=== PATIENT | female | born 1990 | race Hispanic/Latino ===

== ENCOUNTER 2022-01-23 08:26 | Emergency (ER) | payer BC ==
--- OUTSIDE RECORDS SUMMARY | 2022-01-23 08:34 | XMS REPORT | Continuity of Care Document ---
:1990 Author Organization [facility] t Address [address] [place] [address] Care Team Providers Name Role Phone MD CARIDAD MARTIN Primary Care Physician .lmuhammad Attending Clinician Unavailable Syed Valadez Attending Clinician Unavailable Syed Valadez Attending Clinician Unavailable LELE JUAREZ Attending Clinician Unavailable SYED VALADEZ Attending Clinician Unavailable YOVANY NGUYEN Attending Clinician Unavailable Syed Valadez Admitting Clinician Unavailable SYED VALADEZ Admitting Clinician Unavailable Payers Payer Name Policy Type Policy Number Effective Date [id number] Problems Condition Condition Condition Status Onset Resolution Last Treating Co mments Source Name Details Category Date Date Treatment Clinician Date Problem Problem [facility] Postoperat Problem Active NOÉ SALCIDO tg pain S Health Endometrio Problem Active NOÉ SALCIDO sis S determined Health by laparoscop y Allergies, Adverse Reactions, Alerts Allergy Allergy Status Severity Reaction(s) Onset Inactive Treating Comm ents Source Name Type Date Date Clinician No Known Drug Active [facility] No Known Drug Active [facility] No Known [facility] Active [facility] No Known Drug Active [facility] Social History Social Habit Start Date Stop Date Quantity Comments Source History of tobacco [facility] use Sex Assigned At [birth year] Female [facility] 00:00:00 00:00:00 Smoking Status Start Date Stop Date Source Unknown [facility] Never smoked tobacco (finding) [facility] Medications Ordered Filled Start Stop Current Ordering Indication Dosage Frequency Signature Comments Components Source Medication Medication Date Date Medication? Clinician (SIG) Name Name Acetaminoph No 1 Every 6 [facility] en/Codeine 7-15 Hours as S Phosphate 14:54: needed for He alth (Tylenol 00 Pain #3) 1 Each TAB Lisinopril No 10mg Daily [facility] (Zestril) S 10 Mg TAB Health Lisinopril No 10mg Daily [facility] (Zestril) S 10 Mg TAB Health No Home 2021- No [facility] Meds 11-13 S 00:00 Health :00 No Home No [facility] Meds 11-13 S 00:00 Health :00 Vital Signs Vital Name Observation Time Observation Value Comments Source Height/Length Measured 2021-05-30 11:32:43 155 cm Weight Dosing 2021-05-30 11:32:43 88 kg Height/Length Measured 2021-05-30 11:29:31 155 cm Weight Dosing 2021-05-30 11:29:31 88 kg Height/Length Measured 2019-10-21 06:24:20 Weight Dosing 2019-10-21 06:24:20 BP Diastolic 2021-11-22 15:09:00 73 mm[Hg] [facility] BP Systolic 2021-11-22 15:09:00 118 mm[Hg] [facility] Heart Rate 2021-11-22 15:09:00 84 /min [facility] Respiratory rate 2021-11-22 15:09:00 16 /min [facility] Body Temperature 2021-11-22 15:09:00 98.2 [degF] [facility] BP Diastolic 2021-11-22 11:09:00 80 mm[Hg] [facility] BP Systolic 2021-11-22 11:09:00 128 mm[Hg] [facility] Heart Rate 2021-11-22 11:09:00 90 /min [facility] Respiratory rate 2021-11-22 11:09:00 18 /min [facility] Body Temperature 2021-11-22 11:09:00 98.7 [degF] [facility] BP Diastolic 2021-11-22 10:53:00 80 mm[Hg] [facility] BP Systolic 2021-11-22 10:53:00 128 mm[Hg] [facility] Heart Rate 2021-11-22 10:53:00 90 /min [facility] Respiratory rate 2021-11-22 10:53:00 18 /min [facility] Body Temperature 2021-11-22 10:53:00 98.7 [degF] [facility] Respiratory rate 2021-11-14 08:00:00 18 /min [facility] Body Temperature 2021-11-14 08:00:00 98.3 [degF] [facility] BP Diastolic 2021-11-14 08:00:00 82 mm[Hg] [facility] BP Systolic 2021-11-14 08:00:00 135 mm[Hg] [facility] Heart Rate 2021-11-14 08:00:00 68 /min [facility] BP Diastolic 2021-11-14 05:10:00 59 mm[Hg] [facility] BP Systolic 2021-11-14 05:10:00 126 mm[Hg] [facility] Heart Rate 2021-11-14 05:10:00 52 /min [facility] Respiratory rate 2021-11-14 05:10:00 18 /min [facility] Body Temperature 2021-11-14 05:10:00 97.6 [degF] [facility] BP Diastolic 2021-11-14 01:10:00 76 mm[Hg] [facility] BP Systolic 2021-11-14 01:10:00 141 mm[Hg] [facility] Heart Rate 2021-11-14 01:10:00 68 /min [facility] Respiratory rate 2021-11-14 01:10:00 18 /min [facility] BP Diastolic 2021-11-13 21:00:00 76 mm[Hg] [facility] BP Systolic 2021-11-13 21:00:00 127 mm[Hg] [facility] Heart Rate 2021-11-13 21:00:00 86 /min [facility] BP Diastolic 2021-11-13 20:00:00 61 mm[Hg] [facility] BP Systolic 2021-11-13 20:00:00 127 mm[Hg] [facility] Heart Rate 2021-11-13 20:00:00 81 /min [facility] BP Diastolic 2021-11-13 17:00:00 79 mm[Hg] [facility] BP Systolic 2021-11-13 17:00:00 132 mm[Hg] [facility] Heart Rate 2021-11-13 17:00:00 84 /min [facility] BP Diastolic 2021-11-13 16:30:00 77 mm[Hg] [facility] BP Systolic 2021-11-13 16:30:00 130 mm[Hg] [facility] Heart Rate 2021-11-13 16:30:00 83 /min [facility] BP Diastolic 2021-11-13 16:00:00 74 mm[Hg] [facility] BP Systolic 2021-11-13 16:00:00 123 mm[Hg] [facility] Heart Rate 2021-11-13 16:00:00 76 /min [facility] BP Diastolic 2021-11-13 15:30:00 67 mm[Hg] [facility] BP Systolic 2021-11-13 15:30:00 126 mm[Hg] [facility] Heart Rate 2021-11-13 15:30:00 80 /min [facility] BP Diastolic 2021-11-13 15:00:00 76 mm[Hg] [facility] BP Systolic 2021-11-13 15:00:00 125 mm[Hg] [facility] Heart Rate 2021-11-13 15:00:00 93 /min [facility] BP Diastolic 2021-11-13 14:45:00 72 mm[Hg] [facility] BP Systolic 2021-11-13 14:45:00 134 mm[Hg] [facility] Heart Rate 2021-11-13 14:45:00 87 /min [facility] BP Diastolic 2021-11-13 14:30:00 73 mm[Hg] [facility] BP Systolic 2021-11-13 14:30:00 126 mm[Hg] [facility] Heart Rate 2021-11-13 14:30:00 84 /min [facility] BP Diastolic 2021-11-13 14:15:00 77 mm[Hg] [facility] BP Systolic 2021-11-13 14:15:00 123 mm[Hg] [facility] Heart Rate 2021-11-13 14:15:00 70 /min [facility] Body Temperature 2021-11-13 14:15:00 98.8 [degF] [facility] BP Diastolic 2021-11-13 13:50:00 82 mm[Hg] [facility] BP Systolic 2021-11-13 13:50:00 131 mm[Hg] [facility] Heart Rate 2021-11-13 13:50:00 73 /min [facility] Respiratory rate 2021-11-13 13:50:00 14 /min [facility] BP Diastolic 2021-11-13 13:37:00 73 mm[Hg] [facility] BP Systolic 2021-11-13 13:37:00 136 mm[Hg] [facility] Heart Rate 2021-11-13 13:37:00 70 /min [facility] Respiratory rate 2021-11-13 13:37:00 14 /min [facility] BP Diastolic 2021-11-13 13:22:00 79 mm[Hg] [facility] BP Systolic 2021-11-13 13:22:00 121 mm[Hg] [facility] Heart Rate 2021-11-13 13:22:00 73 /min [facility] Respiratory rate 2021-11-13 13:22:00 14 /min [facility] BP Diastolic 2021-11-13 13:07:00 74 mm[Hg] [facility] BP Systolic 2021-11-13 13:07:00 127 mm[Hg] [facility] Heart Rate 2021-11-13 13:07:00 74 /min [facility] Respiratory rate 2021-11-13 13:07:00 14 /min [facility] BP Diastolic 2021-11-13 12:52:00 69 mm[Hg] [facility] BP Systolic 2021-11-13 12:52:00 113 mm[Hg] [facility] Heart Rate 2021-11-13 12:52:00 68 /min [facility] Respiratory rate 2021-11-13 12:52:00 14 /min [facility] BP Diastolic 2021-11-13 12:37:00 65 mm[Hg] [facility] BP Systolic 2021-11-13 12:37:00 115 mm[Hg] [facility] Heart Rate 2021-11-13 12:37:00 80 /min [facility] Respiratory rate 2021-11-13 12:37:00 14 /min [facility] Body Temperature 2021-11-13 12:37:00 98.6 [degF] [facility] BP Diastolic 2021-11-13 12:22:00 61 mm[Hg] [facility] BP Systolic 2021-11-13 12:22:00 105 mm[Hg] [facility] Heart Rate 2021-11-13 12:22:00 80 /min [facility] Respiratory rate 2021-11-13 12:22:00 12 /min [facility] Body Temperature 2021-11-13 12:22:00 99.0 [degF] [facility] BP Diastolic 2021-11-13 08:15:00 84 mm[Hg] [facility] BP Systolic 2021-11-13 08:15:00 135 mm[Hg] [facility] Heart Rate 2021-11-13 08:15:00 80 /min [facility] Health Respiratory rate 2021-11-13 08:15:00 18 /min [facility] Body Temperature 2021-11-13 08:15:00 97.8 [degF] [facility] Procedures Procedure Date / Time Performed Performing Clinician Sour e Computed tomography of 2021-11-22 00:00:00 NOÉ [employer] [facility] abdomen and pelvis with contrast Hysterectomy, laparoscopic, 2021-11-13 00:00:00 [facility] robot-assisted ROUTINE VENIPUNCTURE 2021-11-13 00:00:00 [facility] [employer] TLH W/T/O 250 G OR LESS 2021-11-13 00:00:00 [facility] LAPAROSCOPY EXCISE LESIONS 2021-11-13 00:00:00 [employer] COMPREHEN METABOLIC PANEL 2021-11-13 00:00:00 [employer] URINALYSIS AUTO W/O SCOPE 2021-11-13 00:00:00 [employer] CHORIONIC GONADOTROPIN 2021-11-13 00:00[facility]00 [facility] CBC W/AUTO DIFF 2021-11-13 00:00:00 [facility] [place] [facility] WBC COMPLETE CBC AUTOMATED 2021-11-13 00:00:00 [facility] RBC ANTIBODY SCREEN 2021-11-13 00:00:00 [facility] BLOOD TYPING SEROLOGIC ABO 2021-11-13 00:00:00 [facility] BLOOD TYPING SEROLOGIC 2021-11-13 00:00:00 [facility] RH(D) TISSUE EXAM BY PATHOLOGIST 2021-11-13 00:00:00 [facility] Cath w/drainage 2-way latex 2021-11-13 00:00:00 [facility] Hospital observation per hr 2021-11-13 00:00:00 [facility] Acetaminophen injection 2021-11-13 00:00:00 [facility] Succinycholine chloride inj 2021-11-13 00:00:00 [facility] Cefazolin sodium injection 2021-11-13 00:00:00 [facility] Dexamethasone sodium phos 2021-11-13 00:00:00 [facility] Ketorolac tromethamine inj 2021-11-13 00:00:00 [facility] Inj midazolam hydrochloride 2021-11-13 00:00:00 [facility] Morphine sulfate injection 2021-11-13 00:00:00 [facility] Inj nalbuphine 2021-11-13 00:00:00 [facility] hydrochloride Ondansetron hcl injection 2021-11-13 00:00:00 [facility] Inj, propofol, 10 mg 2021-11-13 00:00:00 [facility] Neostigmine methylslfte inj 2021-11-13 00:00:00 [facility] Fentanyl citrate injection 2021-11-13 00:00:00 [facility] Drugs unclassified 2021-11-13 00:00:00 [facility] injection Ringers lactate infusion 2021-11-13 00:00:00 [facility] observation 2021-11-13 00:00:00 [facility] service, per hour Encounter Stat Only 2020-06-15 00:00:00 [facility] Arthrocentesis aspir&/inj 2020-06-15 00:00:00 [facility] major jt/bursa w/o US Minor level new patient 2020-05-07 00:00:00 [facility] office visit X-ray of shoulder, two or 2020-05-07 00:00:00 [facility] more views Encounters Start End Encounter Admission Attending Care Care Encounter Source Date/Time Date/Time Type Type Clinicians Facility Department ID 2021-08-08 Outpatient .lmuhamma [facility] [id number] [facility] 08:58:02 d [id number] Formerly [facility] 2019-09-30 Inpatient Mc Valadezen [facility] [id number] Medical 11:50:00 Syed Valadez [facility] 2021-11-22 2021-11-22 Registered ER RUIZ JUAREZ AE [id number] [facility] 10:48:00 15:11:00 Emergency LELE 67 S Room [facility] 2021-11-13 2021-11-14 Discharged ZULY BONGSHAR RUIZ OB [id number] [facility] 13:02:00 10:36:00 Inpatient SYED 01 S (obs) Health 2020-06-15 2020-06-15 Discharged ZULY NGUYEN RUIZ MELCHOR [id number] [facility] 11:15:00 11:15:00 Recurring YOVANY 54 S Health 2020-05-07 2020-05-07 Discharged ZULY NGUYEN RUIZ MELCHOR [id number] [facility] 16:39:00 16:39:00 Recurring YOVANY 57 S [facility] 2019-10-21 2019-10-21 Outpatient 3 Rory Syed [facility] [id number] Medical 06:03:00 06:03:00 Syed Valadez -[id number] [facility] Results Test Description Test Time Test Comments Results Result Comments Source Urinalysis specimen collection method 2021-11-22 12:30:00 Test Item Value Reference Range Interpretation Comme nts Urine Source (test code = 45549-3) URINE RUIZ HealthColor of Urine by [id number] 12:30:00 Test Item Value Reference Range Interpretation Comments Urine Color (test code = 28905-8) Lt Yellow Yel-Tete * [facility] HealthUrine clarity [id number] 12:30:00 Test Item Value Reference Range Interpretation Comments Urine Appearance (test code = 49906-0) Clear Clear * [facility] HealthUrine pH measurement by automated test [id number] 12:30:00 Test Item Value Reference Range Interpretation Comments Urine pH (test code = 94943-2) 5.5 5.0-8.0 [facility] HealthSpecific gravity of Urine by Automated test [id number] 12:30:00 Test Item Value Reference Range Interpretation Comments Urine Specific [place] (test code = 1.012 1.005-1.030 30558-0) [facility]Urine protein measurement by automated test strip (mass/volume) 2021-11-22 12:30:00 Test Item Value Reference Range Interpretation Comments Urine Protein (test code = 94626-5) Negative Negative * [facility] HealthUrine glucose measurement by automated test strip (mass/volume) 2021-11-22 12:30:00 Test Item Value Reference Range Interpretation Comments Urine Glucose (UA) (test code = Negative Negative * 49285-9) [facility] HealthKetones [Mass/volume] in Urine by Automated test [id number] 12:30:00 Test Item Value Reference Range Interpretation Comments Urine Ketones (test code = 03418-9) Negative Negative * [facility] HealthUrine erythrocytes count by automated test strip (number/volume) 2021-11-22 12:30:00 Test Item Value Reference Range Interpretation Comments Urine Occult Blood (test code = Trace Negative * 51681-2) [facility] HealthUrine nitrite detection by automated test [id number] 12:30:00 Test Item Value Reference Range Interpretation Comments Urine Nitrite (test code = 59454-2) Negative Negative [facility] total bilirubin measurement by automated test strip (mass/volume)2021-11-22 12:30:00 Test Item Value Reference Range Interpretation Comments Urine Bilirubin (test code = Negative Negative 31387-4) [facility] HealthUrine urobilinogen measurement by automated test strip (mass/volume)2021-11-22 12:30:00 Test Item Value Reference Range Interpretation Comments Urine Urobilinogen (test code = Negative 0.0-1.0 97668-2) [facility] HealthUrine leukocytes count by automated test strip (number/volume) 2021-11-22 12:30:00 Test Item Value Reference Range Interpretation Comments Urine Leukocyte Esterase (test code Negative Negative = 44949-5) [facility] HealthUrine sediment erythrocyte count by microscopy (number/high power field)2021-11-22 12:30:00 Test Item Value Reference Range Interpretation Comments Urine RBC (test code = 38487-1) 0-2 0-2 [facility] HealthUrine sediment leukocyte count by microscopy (number/high power field)2021-11-22 12:30:00 Test Item Value Reference Range Interpretation Comments Urine WBC (test code = 5821-4) 0-5 0-5 [facility] HealthUrine sediment epithelial cell count by microscopy (number/high power field)2021-11-22 12:30:00 Test Item Value Reference Range Interpretation Comments Urine Epithelial Cells (test code = None Seen Few 5787-7) [facility] HealthUrine sediment crystal count by microscopy (number/high power field)2021-11-22 12:30:00 Test Item Value Reference Range Interpretation Comments Urine Crystals (test code = None Seen None * 15375-2) [facility] HealthUrine sediment bacteria count by microscopy (number/high power field)2021-11-22 12:30:00 Test Item Value Reference Range Interpretation Comments Urine Bacteria (test code = 5769-5) Few None [facility] HealthUrine sediment casts count by microscopy (number/low power field) 2021-11-22 12:30:00 Test Item Value Reference Range Interpretation Comments Urine Casts (test code = 9842-6) Present None * [facility] HealthUrine sediment hyaline cast count by microscopy (number/low power field)2021-11-22 12:30:00 Test Item Value Reference Range Interpretation Comments Urine Hyaline Casts (test code = 0-1 0-1 5796-8) [facility] HealthYeast detection in urine sediment by light [id number] 12:30:00 Test Item Value Reference Range Interpretation Comments Urine Yeast (test code = 96428-3) None Seen None [facility] comment 12:30:00 Test Item Value Reference Range Interpretation Comments Urinalysis Comment (test * See_Comment [A utomated message] The code = 8262-8) system which generated this result tra nsmitted reference range : *. The reference range was not used to interpr et this result as normal/abnormal . [facility] comment 12:30:00 Test Item Value Reference Range Interpretation Comments Urine Culture Indicated (test code To follow = 8264-4) [facility] HealthAutomated blood leukocyte count (number/volume)2021-11-22 12:25:00 Test Item Value Reference Range Interpretation Comments White Blood Count (test code = 6690-2) 11.7 4.5-11.5 [facility] HealthBlood erythrocytes automated count (number/volume)2021-11-22 12:25:00 Test Item Value Reference Range Interpretation Comments Red Blood Count (test code = 789-8) 4.44 3.8-5.1 [facility] HealthBlood hemoglobin measurement (mass/volume)2021-11-22 12:25:00 Test Item Value Reference Range Interpretation Comments Hemoglobin (test code = 718-7) 12.2 12.0-15.2 [facility] HealthAutomated blood hematocrit (volume fraction)2021-11-22 12:25:00 Test Item Value Reference Range Interpretation Comments Hematocrit (test code = 4544-3) 38.3 34.0-45.5 [facility] HealthAutomated erythrocyte mean corpuscular volume (MCV) measurement 2021-11-22 12:25:00 Test Item Value Reference Range Interpretation Comments Mean Corpuscular Volume (test code = 86 80-94 787-2) [facility] HealthAutomated erythrocyte mean corpuscular hemoglobin (mass per erythrocyte)2021-11-22 12:25:00 Test Item Value Reference Range Interpretation Comments Mean Corpuscular Hemoglobin (test code 27.5 27.0-33.0 = 785-6) [facility] HealthAutomated erythrocyte mean corpuscular hemoglobin concentration measurement (mass/volume)2021-11-22 12:25:00 Test Item Value Reference Range Interpretation Comments Mean Corpuscular Hemoglobin Concent 31.9 33.0-37.0 (test code = 786-4) [facility] HealthAutomated erythrocyte distribution width [id number] 12:25:00 Test Item Value Reference Range Interpretation Comments Red Cell Distribution Width (test code 12.4 10.7-14.5 = 788-0) [facility] HealthAutomated blood platelet count (count/volume)2021-11-22 12:25:00 Test Item Value Reference Range Interpretation Comments Platelet Count (test code = 777-3) 321 150-450 [facility] HealthAutomated blood platelet mean volume [id number] 12:25:00 Test Item Value Reference Range Interpretation Comments Mean Platelet Volume (test code = 9.8 5.7-10.7 50950-9) [facility] HealthAutomated blood neutrophil count as percentage of total [id number] 12:25:00 Test Item Value Reference Range Interpretation Comments Neutrophils (%) (Auto) (test code = 78 47-75 770-8) [facility] HealthAutomated blood immature granulocyte count as percentage of total cjdkbdafsl9150-16-18 12:25:00 Test Item Value Reference Range Interpretation Comments Immature Granulocyte % (Auto) (test 0 0-0 code = 21650-7) [facility] HealthAutomated blood lymphocyte count as percentage of total [id number] 12:25:00 Test Item Value Reference Range Interpretation Comments Lymphocytes (%) (Auto) (test code = 14 25-44 736-9) [facility] HealthAutomated blood monocyte count as percentage of total leukocytes 2021-11-22 12:25:00 Test Item Value Reference Range Interpretation Comments Monocytes (%) (Auto) (test code = 6 3-10 5905-5) [facility] HealthAutomated blood eosinophil count as percentage of total [id number] 12:25:00 Test Item Value Reference Range Interpretation Comments Eosinophils (%) (Auto) (test code = 3 0-7 713-8) [facility] HealthAutomated blood basophil count as percentage of total leukocytes 2021-11-22 12:25:00 Test Item Value Reference Range Interpretation Comments Basophils (%) (Auto) (test code = 0 0-1 706-2) [facility] HealthAutomated blood nucleated erythrocyte count as percentage of total pxlgagxzqz4524-61-25 12:25:00 Test Item Value Reference Range Interpretation Comments Nucleated Red Blood Cells % (test code 0.0 0-0.2 = 15446-1) [facility] HealthAutomated blood neutrophil count (number/volume)2021-11-22 12:25:00 Test Item Value Reference Range Interpretation Comments Neutrophils # (Auto) (test code = 9.1 1.3-6.7 751-8) [facility] HealthAutomated blood immature granulocyte count as percentage of total [id number] 12:25:00 Test Item Value Reference Range Interpretation Comments Immature Granulocyte # (Auto) (test 0.1 0.0-0.0 code = 32975-4) [facility] HealthAutomated blood lymphocyte count (number/volume)2021-11-22 12:25:00 Test Item Value Reference Range Interpretation Comments Lymphocytes # (Auto) (test code = 1.6 1.4-4.1 731-0) [facility] HealthBlood monocytes automated count (number/volume)2021-11-22 12:25:00 Test Item Value Reference Range Interpretation Comments Monocytes # (Auto) (test code = 742-7) 0.7 0-1.3 [facility] HealthAutomated blood eosinophil [id number] 12:25:00 Test Item Value Reference Range Interpretation Comments Eosinophils # (Auto) (test code = 0.3 0-0.8 711-2) [facility] HealthAutomated blood basophil count (number/volume)2021-11-22 12:25:00 Test Item Value Reference Range Interpretation Comments Basophils # (Auto) (test code = 704-7) 0.0 0-0.1 [facility] HealthAutomated blood nucleated erythrocyte count (count/volume) 2021-11-22 12:25:00 Test Item Value Reference Range Interpretation Comments Nucleated Red Blood Cells # (test code 0.00 0-0.01 = 771-6) [facility] comment [id number] 12:25:00 Test Item Value Reference Range Interpretation Comments Manual Differential (test code = Not Ind 8265-1) [id number] 12:25:00 Test Item Value Reference Range Interpretation Comments Sodium Level (test code = 2951-2) 138 136-145 [facility] HealthSerum or plasma potassium measurement (moles/volume)2021-11-22 12:25:00 Test Item Value Reference Range Interpretation Comments Potassium Level (test code = 2823-3) 3.7 3.5-5.1 [facility] HealthSerum or plasma chloride measurement (moles/volume)2021-11-22 12:25:00 Test Item Value Reference Range Interpretation Comments Chloride Level (test code = 2075-0) 102 98-107 [facility] HealthSerum or plasma total carbon dioxide measurement (moles/volume) 2021-11-22 12:25:00 Test Item Value Reference Range Interpretation Comments Carbon Dioxide Level (test code = 27 22-29 2027-) [facility] HealthSerum or plasma anion gap determination (moles/volume)2021-11-22 12:25:00 Test Item Value Reference Range Interpretation Comments Anion Gap (test code = 30311-1) 13 8-18 [facility] HealthSerum or plasma urea nitrogen measurement (mass/volume)2021-11-22 12:25:00 Test Item Value Reference Range Interpretation Comments Blood Urea Nitrogen (test code = 12 7-19 3094-0) [facility] HealthSerum or plasma creatinine measurement (mass/volume)2021-11-22 12:25:00 Test Item Value Reference Range Interpretation Comments Creatinine (test code = 2160-0) 0.7 0.6-1.1 [facility] HealthGFR/BSA.pred SerPl [id number] 12:25:00 Test Item Value Reference Range Interpretation Comments Estimat Glomerular Filtration Rate 104 81-133 (test code = 24003-9) [facility] HealthSerum or plasma glucose measurement (mass/volume)2021-11-22 12:25:00 Test Item Value Reference Range Interpretation Comments Glucose Level (test code = 2345-7) 112 60-100 [facility] HealthSerum or plasma calcium measurement (mass/volume)2021-11-22 12:25:00 Test Item Value Reference Range Interpretation Comments Calcium Level (test code = 01007-0) 9.4 8.4-10.2 [facility] or plasma total bilirubin measurement (mass/volume) 2021-11-22 12:25:00 Test Item Value Reference Range Interpretation Comments Total Bilirubin (test code = 1975-2) 0.4 0.2-1.2 [facility]um or plasma aspartate aminotransferase measurement (enzymatic activity/volume)2021-11-22 12:25:00 Test Item Value Reference Range Interpretation Comments Aspartate Amino Transf (AST/SGOT) (test 15 5-34 code = 1920-8) [facility] or plasma alanine aminotransferase measurement (enzymatic activity/volume)2021-11-22 12:25:00 Test Item Value Reference Range Interpretation Comments Alanine Aminotransferase (ALT/SGPT) 26 0-55 (test code = 1742-6) [facility] or plasma protein measurement (mass/volume)2021-11-22 12:25:00 Test Item Value Reference Range Interpretation Comments Total Protein (test code = 2885-2) 7.6 6.4-8.3 [facility] or plasma albumin measurement (mass/volume)2021-11-22 12:25:00 Test Item Value Reference Range Interpretation Comments Albumin (test code = 1751-7) 4.1 3.5-5.0 [facility] or plasma alkaline phosphatase measurement (enzymatic activity/volume)2021-11-22 12:25:00 Test Item Value Reference Range Interpretation Comments Alkaline Phosphatase (test code = 72 40-150 6768-6) [facility] or plasma lipase measurement (enzymatic activity/volume) 2021-11-22 12:25:00 Test Item Value Reference Range Interpretation Comments Lipase (test code = 3040-3) 19 8-78 [facility] HealthAutomated blood leukocyte count (number/volume)2021-11-14 05:10:00 Test Item Value Reference Range Interpretation Comments White Blood Count (test code = 6690-2) 13.1 4.5-11.5 [facility]Blood erythrocytes automated count (number/volume)2021-11-14 05:10:00 Test Item Value Reference Range Interpretation Comments Red Blood Count (test code = 789-8) 4.40 3.8-5.1 [facility]Blood hemoglobin measurement (mass/volume)2021-11-14 05:10:00 Test Item Value Reference Range Interpretation Comments Hemoglobin (test code = 718-7) 12.2 12.0-15.2 [facility] HealthAutomated blood hematocrit (volume fraction)2021-11-14 05:10:00 Test Item Value Reference Range Interpretation Comments Hematocrit (test code = 4544-3) 39.1 34.0-45.5 [facility]Automated erythrocyte mean corpuscular volume (MCV) measurement 2021-11-14 05:10:00 Test Item Value Reference Range Interpretation Comments Mean Corpuscular Volume (test code = 89 80-94 787-2) [facility]Automated erythrocyte mean corpuscular hemoglobin (mass per erythrocyte)2021-11-14 05:10:00 Test Item Value Reference Range Interpretation Comments Mean Corpuscular Hemoglobin (test code 27.7 27.0-33.0 = 785-6) [facility]Automated erythrocyte mean corpuscular hemoglobin concentration measurement (mass/volume)2021-11-14 05:10:00 Test Item Value Reference Range Interpretation Comments Mean Corpuscular Hemoglobin Concent 31.2 33.0-37.0 (test code = 786-4) [facility]Automated erythrocyte distribution width [id number] 05:10:00 Test Item Value Reference Range Interpretation Comments Red Cell Distribution Width (test code 12.6 10.7-14.5 = 788-0) [facility]Automated blood platelet count (count/volume)2021-11-14 05:10:00 Test Item Value Reference Range Interpretation Comments Platelet Count (test code = 777-3) 360 150-450 [facility]Autom[facility] blood platelet mean volume [id number] 05:10:00 Test Item Value Reference Range Interpretation Comments Mean Platelet Volume (test code = 9.8 5.7-10.7 98767-1) [facility]Automated blood neutrophil count as percentage of total [id number] 05:10:00 Test Item Value Reference Range Interpretation Comments Neutrophils (%) (Auto) (test code = 78 47-75 770-8) [facility]Automated blood immature granulocyte count as percentage of total vfuewimttu7654-28-93 05:10:00 Test Item Value Reference Range Interpretation Comments Immature Granulocyte % (Auto) (test 1 0-0 code = 56910-8) [facility]Automated blood lymphocyte count as percentage of total [id number] 05:10:00 Test Item Value Reference Range Interpretation Comments Lymphocytes (%) (Auto) (test code = 16 25-44 736-9) [facility]ated blood monocyte count as percentage of total leukocytes 2021-11-14 05:10:00 Test Item Value Reference Range Interpretation Comments Monocytes (%) (Auto) (test code = 6 3-10 5905-5) [facility]Automated blood eosinophil count as percentage of total qletgreidp8072-13-72 05:10:00 Test Item Value Reference Range Interpretation Comments Eosinophils (%) (Auto) (test code = 0 0-7 713-8) [facility]ated blood basophil count as percentage of total leukocytes 2021-11-14 05:10:00 Test Item Value Reference Range Interpretation Comments Basophils (%) (Auto) (test code = 0 0-1 706-2) [facility] blood nucleated erythrocyte count as percentage of total ulztgofryp3365-48-88 05:10:00 Test Item Value Reference Range Interpretation Comments Nucleated Red Blood Cells % (test code 0.0 0-0.2 = 64221-9) [facility] blood neutrophil count (number/volume)2021-11-14 05:10:00 Test Item Value Reference Range Interpretation Comments Neutrophils # (Auto) (test code = 10.2 1.3-6.7 751-8) [facility]ated blood immature granulocyte count as percentage of total zifhthngga9909-88-26 05:10:00 Test Item Value Reference Range Interpretation Comments Immature Granulocyte # (Auto) (test 0.1 0.0-0.0 code = 81903-1) [facility]Automated blood lymphocyte count (number/volume)2021-11-14 05:10:00 Test Item Value Reference Range Interpretation Comments Lymphocytes # (Auto) (test code = 2.0 1.4-4.1 731-0) [facility] (number/volume)2021-11-14 05:10:00 Test Item Value Reference Range Interpretation Comments Monocytes # (Auto) (test code = 742-7) 0.7 0-1.3 [facility]Automated blood eosinophil [id number] 05:10:00 Test Item Value Reference Range Interpretation Comments Eosinophils # (Auto) (test code = 0.0 0-0.8 711-2) [facility]ated blood basophil count (number/volume)2021-11-14 05:10:00 Test Item Value Reference Range Interpretation Comments Basophils # (Auto) (test code = 704-7) 0.0 0-0.1 [facility]Automated blood nucleated erythrocyte count (count/volume) 2021-11-14 05:10:00 Test Item Value Reference Range Interpretation Comments Nucleated Red Blood Cells # (test code 0.00 0-0.01 = 771-6) [facility] comment [id number] 05:10:00 Test Item Value Reference Range Interpretation Comments Manual Differential (test code = Not Ind 8265-1) [facility] HealthMicroscopic examination of [id number] 12:05:00 Test Item Value Reference Range Interpretation Comments Microscopic Urinalysis (T) (test code Not Ind = 56249-1) [facility] HealthUrinalysis specimen collection [id number] 12:05:00 Test Item Value Reference Range Interpretation Comments Urine Source (test code = 80790-8) URINE [facility] HealthColor of Urine by [id number] 12:05:00 Test Item Value Reference Range Interpretation Comments Urine Color (test code = 66382-8) Colorless Yel-Tete * [facility] HealthUrine clarity [id number] 12:05:00 Test Item Value Reference Range Interpretation Comments Urine Appearance (test code = 73618-1) Clear Clear * [facility] HealthUrine pH measurement by automated test [id number] 12:05:00 Test Item Value Reference Range Interpretation Comments Urine pH (test code = 27161-8) 6.0 5.0-8.0 [facility] HealthSpecific gravity of Urine by Automated test [id number] 12:05:00 Test Item Value Reference Range Interpretation Comments Urine Specific [place] (test code = 1.005 1.005-1.030 87625-5) [facility] HealthUrine protein measurement by automated test strip (mass/volume) 2021-11-12 12:05:00 Test Item Value Reference Range Interpretation Comments Urine Protein (test code = 65484-1) Negative Negative * [facility] HealthUrine glucose measurement by automated test strip (mass/volume) 2021-11-12 12:05:00 Test Item Value Reference Range Interpretation Comments Urine Glucose (UA) (test code = Negative Negative * 18494-4) [facility] HealthKetones [Mass/volume] in Urine by Automated test [id number] 12:05:00 Test Item Value Reference Range Interpretation Comments Urine Ketones (test code = 21350-3) Negative Negative * [facility] HealthUrine erythrocytes count by automated test strip (number/volume) 2021-11-12 12:05:00 Test Item Value Reference Range Interpretation Comments Urine Occult Blood (test code = Negative Negative * 58482-1) [facility] HealthUrine nitrite detection by automated test [id number] 12:05:00 Test Item Value Reference Range Interpretation Comments Urine Nitrite (test code = 55387-2) Negative Negative [facility] Health[facility] total bilirubin measurement by automated test strip (mass/volume)2021-11-12 12:05:00 Test Item Value Reference Range Interpretation Comments Urine Bilirubin (test code = Negative Negative 13899-0) [facility] HealthUrine urobilinogen measurement by automated test strip (mass/volume)2021-11-12 12:05:00 Test Item Value Reference Range Interpretation Comments Urine Urobilinogen (test code = Negative 0.0-1.0 49756-8) [facility] HealthUrine leukocytes count by automated test strip (number/volume) 2021-11-12 12:05:00 Test Item Value Reference Range Interpretation Comments Urine Leukocyte Esterase (test code Negative Negative = 89881-4) [facility] [id number] 12:05:00 Test Item Value Reference Range Interpretation Comments Microscopic Urinalysis (T) (test code Not Ind = 57671-9) [facility] HealthService comment 12:05:00 Test Item Value Reference Range Interpretation Comments Urinalysis Comment (test * See_Comment [A utomated message] The code = 8262-8) system which generated this result tra nsmitted reference range : *. The reference range was not used to interpr et this result as normal/abnormal . [facility]Serum or plasma beta choriogonadotropin ( test) [id number] 12:00:00 Test Item Value Reference Range Interpretation Comments Serum Test, Qualitative Negative Negative (test code = 2110-5) [facility] HealthSodium FdwTv-[id number] 12:00:00 Test Item Value Reference Range Interpretation Comments Sodium Level (test code = 2951-2) 137 136-145 [facility]Serum or plasma potassium measurement (moles/volume)2021-11-12 12:00:00 Test Item Value Reference Range Interpretation Comments Potassium Level (test code = 2823-3) 4.2 3.5-5.1 [facility] or plasma chloride measurement (moles/volume)2021-11-12 12:00:00 Test Item Value Reference Range Interpretation Comments Chloride Level (test code = 2075-0) 104 98-107 [facility]Serum or plasma total carbon dioxide measurement (moles/volume) 2021-11-12 12:00:00 Test Item Value Reference Range Interpretation Comments Carbon Dioxide Level (test code = -2028-01) [facility] or plasma anion gap determination (moles/volume)2021-11-12 12:00:00 Test Item Value Reference Range Interpretation Comments Anion Gap (test code = 93773-1) 12 8-18 [facility]um or plasma urea nitrogen measurement (mass/volume)2021-11-12 12:00:00 Test Item Value Reference Range Interpretation Comments Blood Urea Nitrogen (test code = 03 17- 3094-0) [facility] or plasma creatinine measurement (mass/volume)2021-11-12 12:00:00 Test Item Value Reference Range Interpretation Comments Creatinine (test code = 2160-0) 0.8 0.6-1.1 [facility] HealthGFR/BSA.pred SerPl [id number] 12:00:00 Test Item Value Reference Range Interpretation Comments Estimat Glomerular Filtration Rate 89 81-133 (test code = 36834-9) [facility]um or plasma glucose measurement (mass/volume)2021-11-12 12:00:00 Test Item Value Reference Range Interpretation Comments Glucose Level (test code = 2345-7) 92 60-100 [facility]Serum or plasma calcium measurement (mass/volume)2021-11-12 12:00:00 Test Item Value Reference Range Interpretation Comments Calcium Level (test code = 98794-8) 9.6 8.4-10.2 [facility] or plasma total bilirubin measurement (mass/volume) 2021-11-12 12:00:00 Test Item Value Reference Range Interpretation Comments Total Bilirubin (test code = 1975-2) 0.3 0.2-1.2 [facility]um or plasma aspartate aminotransferase measurement (enzymatic activity/volume)2021-11-12 12:00:00 Test Item Value Reference Range Interpretation Comments Aspartate Amino Transf (AST/SGOT) (test 22 -34 code = 1920-8) [facility] or plasma alanine aminotransferase measurement (enzymatic activity/volume)2021-11-12 12:00:00 Test Item Value Reference Range Interpretation Comments Alanine Aminotransferase (ALT/SGPT) 25 0-55 (test code = 1742-6) [facility] protein measurement (mass/volume)2021-11-12 12:00:00 Test Item Value Reference Range Interpretation Comments Total Protein (test code = 2885-2) 7.7 6.4-8.3 [facility] albumin measurement (mass/volume)2021-11-12 12:00:00 Test Item Value Reference Range Interpretation Comments Albumin (test code = 1751-7) 4.3 3.5-5.0 [facility] plasma alkaline phosphatase measurement (enzymatic activity/volume)2021-11-12 12:00:00 Test Item Value Reference Range Interpretation Comments Alkaline Phosphatase (test code = 68 40150 6768-6) [facility] beta choriogonadotropin ( test) [id number] 12:00:00 Test Item Value Reference Range Interpretation Comments Serum Test, Qualitative Negative Negative (test code = 2110-5) [facility]
[2022-01-23] MEDS ORDERED: ONDANSETRON 4 MG/2 ML VIAL ONE (08:52)
[2022-01-23] MEDS ORDERED: MORPHINE 2 MG/ML SYR ONE ×2 (08:52→14:19)
[2022-01-23] MEDS ORDERED: NA CHLORIDE 0.9% 1,000 ML ONE (08:53)
[2022-01-23 09:05] LABS: Urine Blood 1+ (Negative); Urine Glucose Negative (Negative); Urine Protein Trace (Negative)
[2022-01-23 09:07] LABS: Absolute Lymphocytes (CBC) 1.3 K/uL (0.7-4.9); Hematocrit 38.3 % (36.0-45.0); Lymphocytes % 7.1 % (15.3-44.8); MCV 83.3 fL (80-100); MPV 7.9 fL (7.6-11.3); RBC Red Blood Cell Count 4.59 M/uL (3.86-4.86)
[2022-01-23 09:28] LABS: Albumin 3.7 g/dL (3.4-5.0); Bilirubin Total 0.5 mg/dL (0.2-1.0); Protein, Total 7.7 g/dL (6.4-8.2)
--- NOTE | 2022-01-23 10:09 | RAD REPORT ---
EXAM DESCRIPTION: CT - Abdomen Pelvis W Contrast - 01/23/2022 9:49 am CLINICAL HISTORY: Abdominal pain COMPARISON: none. TECHNIQUE: Computed axial tomography of the abdomen pelvis was obtained. 100 cc Isovue-300 was admin istered intravenously. Oral contrast was not requested which limits evaluation of bowel and appendix All CT scans are performed using dose optimization technique as appropriate and may include automated exposure control or mA/KV adjustment according to patient size. FINDINGS: Fatty liver The spleen, pancreas and adrenals unremarkable. Horseshoe kidney. No hydronephrosis. Normal appendix There is no evidence of diverticulitis. 2.5 centimeter left ovarian dermoid Air is present within the vagina. There is also a air which is outside of vagina with small amount of fluid and stranding within the fat. IMPRESSION: These findings likely indicate a vaginal dehiscence
[2022-01-23] MEDS ORDERED: MORPHINE 4 MG/ML SYR ONE (10:40)
--- NOTE | 2022-01-23 11:34 | EDPHYS ---
Physician Documentation [facility] Name: Makenzie Mendez Age: 31 yrs Sex: Female : 1990 Arrival Date: 01/23/2022 Time: 08:31 Bed 11 Private MD: ED Physician Brendan Lopez HPI: 01/23 08:54 This 31 yrs old Female presents to ER via Ambulatory with complaints of jl9 Abdominal Pain, patient reports have a hysterectomy November 13, 2021 and having intercourse for the first time last night. Patient noticed minimal spotting after and started having upper and lower abdominal pain. . 08:54 The patient presents with abdominal pain in the epigastric area, right lower quadrant, jl9 in the left lower quadrant. Onset: The symptoms/episode began/occurred last night. The symptoms do not radiate. Associated signs and symptoms: Pertinent negatives: nausea, vomiting, and diarrhea. The symptoms are described as crampy. Modifying factors: The symptoms are alleviated by nothing, the symptoms are aggravated by nothing. Severity of pain: in the emergency department the pain is a 9 / 10. The patient has not experienced similar symptoms in the past. 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 ROS: 08:55 Constitutional: Negative for fever, chills, and weight loss, Eyes: Negative for injury, jl9 pain, redness, and discharge, ENT: Negative for injury, pain, and discharge, Neck: Negative for injury, pain, and swelling, Cardiovascular: Negative for chest pain, palpitations, and edema, Respiratory: Negative for shortness of breath, cough, wheezing, and pleuritic chest pain. 08:55 Back: Negative for injury and pain, MS/Extremity: Negative for injury and deformity. 08:55 Skin: Negative for injury, rash, and discoloration, Neuro: Negative for headache, weakness, numbness, tingling, and seizure, Psych: Negative for depression, anxiety, suicide ideation, homicidal ideation, and hallucinations, Allergy/Immunology: Negative for hives, rash, and allergies, Endocrine: Negative for neck swelling, polydipsia, polyuria, polyphagia, and marked weight changes, Hematologic/Lymphatic: Negative for swollen nodes, abnormal bleeding, and unusual bruising. 08:55 Abdomen/GI: Positive for abdominal cramps. 08:55 : Positive for small amounts, hematuria. Exam: 08:56 Constitutional: This is a well developed, well nourished patient who is awake, alert, jl9 and in no acute distress. Head/Face: Normocephalic, atraumatic. Eyes: Pupils equal round and reactive to light, extra-ocular motions intact. Lids and lashes normal. Conjunctiva and sclera are non-icteric and not injected. Cornea within normal limits. Periorbital areas with no swelling, redness, or edema. ENT: Mucous membranes moist. Neck: Trachea midline, no thyromegaly or masses palpated, and no cervical lymphadenopathy. Supple, full range of motion without nuchal rigidity, or vertebral point tenderness. No Meningismus. Chest/axilla: Normal chest wall appearance and motion. Nontender with no deformity. No lesions are appreciated. Cardiovascular: Regular rate and rhythm with a normal S1 and S2. No gallops, murmurs, or rubs. Normal PMI, no JVD. No pulse deficits. Respiratory: Lungs have equal breath sounds bilaterally, clear to auscultation and percussion. No rales, rhonchi or wheezes noted. No increased work of breathing, no retractions or nasal flaring. 08:56 Back: No spinal tenderness. No costovertebral tenderness. Full range of motion. 08:56 Skin: Warm, dry with normal turgor. Normal color with no rashes, no lesions, and no evidence of cellulitis. MS/ Extremity: Pulses equal, no cyanosis. Neurovascular intact. Full, normal range of motion. Neuro: Awake and alert, GCS 15, oriented to person, place, time, and situation. Cranial nerves II-XII grossly intact. Motor strength 5/5 in all extremities. Sensory grossly intact. Cerebellar exam normal. Normal gait. Psych: Awake, alert, with orientation to person, place and time. Behavior, mood, and affect are within normal limits. 08:56 Abdomen/GI: Inspection: abdomen appears normal, Bowel sounds: normal, Palpation: mild abdominal tenderness, in all quadrants. 08:56 : CVA tenderness, is absent, Pelvic Exam: The exam is refused by the patient/guardian. The risks and consequences are understood by the patient, Gravid exam: Bladder: Rectal exam: 11:39 Abdomen/GI: Inspection: Bowel sounds: Palpation: Rectal exam: Indicators: Liver: jl9 11:39 : Pelvic Exam: Speculum exam: scant bleeding, no tissue in vagina is seen, bimanual exam reveals normal findings. Vital Signs: 08:32 BP 135 / 76; Pulse 114; Resp 17; Temp 98.8(TE); Pulse Ox 100% on R/A; Weight 90.72 kg tw2 (R); Height 5 ft. 1 in. (154.94 cm); Pain 9/10; 09:09 BP 124 / 72; Pulse 101; Resp 14; Pulse Ox 100% on R/A; Pain 6/10; ss 08:32 Body Mass Index 37.79 (90.72 kg, 154.94 cm) tw2 MDM: 08:32 Patient medically screened. jl9 08:57 Data reviewed: vital signs, nurses notes. jl9 10:27 Counseling: I had a detailed discussion with the patient and/or guardian regarding: the jl9 historical points, exam findings, and any diagnostic results supporting the discharge/admit diagnosis, lab results, radiology results, the need for further work-up and treatment in the hospital. 12:08 Physician consultation: was called at 12:08, was contacted at 12:08, regarding after a jl9 discussion of the case, a recommendation for transfer for higher level of care is made, Spoke to [facility] GAS REGULATOR REPAIRER and she accepts patient for transfer and will see in the ED upon arrival. . 01/23 08:38 Order name: CBC with Diff; Complete Time: 09:30 01/23 08:38 Order name: CMP; Complete Time: 09:30 [facility] 01/23 08:38 Order name: Lipase; Complete Time: 09:30 01/23 09:05 Order name: Urine Dipstick-Ancillary; Complete Time: 09:30 [facility] 01/23 09:30 Order name: Lactate; Complete Time: 11:27 01/23 09:30 Order name: Blood Culture Adult (2) [facility] 01/23 08:38 Order name: CT Abd/Pelvis - IV Contrast Only; Complete Time: 10:10 01/23 10:14 Order name: SARS RAPID; Complete Time: 11:46 01/23 08:38 Order name: IV Saline Lock; Complete Time: 08:57 01/23 08:38 Order name: Labs collected and sent; Complete Time: 08:57 01/23 08:38 Order name: Urine Dipstick-Ancillary (obtain specimen); Complete Time: 08:57 01/23 10:26 Order name: Pelvic Exam Setup; Complete Time: 11:32 jl9 Administered Medications: 08:55 Drug: Ondansetron 4 mg Route: IVP; Site: right antecubital; ss 11:44 Follow up: Response: No adverse reaction; Pain is decreased ph 08:57 Drug: NS 0.9% 1000 ml Route: IV; Rate: 1000 ml; Site: right antecubital; ss 08:57 Drug: morphine 2 mg Route: IVP; Infused Over: 4 mins; Site: right antecubital; ss 11:44 Follow up: Response: No adverse reaction; Pain is decreased ph 10:35 Drug: morphine 4 mg Route: IVP; Infused Over: 4 mins; Site: right antecubital; ph 11:44 Follow up: Response: No adverse reaction; Pain is decreased ph 11:30 CANCELLED (wdd): Rocephin (cefTRIAXone) 2 grams IV at calculated rate once; Given slow jl9 IV push per pharmarcy instructions 12:25 Drug: metroNIDAZOLE 500 mg Volume: 100 ml; Route: IVPB; Infused Over: 30 mins; Site: ss right antecubital; 12:55 Follow up: IV Status: Completed infusion 13:00 Drug: Zosyn (piperacillin-tazobactam) 3.375 grams Route: IVPB; Infused Over: 60 mins; ss Site: right antecubital; 14:13 Follow up: IV Status: Completed infusion ss 14:13 Drug: morphine 2 mg Route: IVP; Infused Over: 4 mins; Site: right antecubital; ss Disposition Summary: 01/23/22 11:33 Transfer Ordered Transfer Location: [facility] jl9 Reason: Higher level of care jl9 Condition: Fair jl9 Problem: new jl9 Symptoms: have worsened jl9 Accepting Physician: In process(01/23/22 14:14) ss Diagnosis - Other abdominal pain - Vaginal Dehisence s/p hysterectomy 11/13/21 jl9 Discharge Instructions: - Discharge Summary Sheet tw2 Forms: - Work release form tw2 - Medication Reconciliation Form jl9 - SBAR form jl9 Signatures: Dispatcher [employer] Vanessa Benavides, RN RN ss Tracy Blum RN RN Calista Sarmiento RN RN tw2 Saulo Telles jl9 Corrections: (The following items were deleted from the chart) 10:30 08:54 This 31 yrs old Female presents to ER via Ambulatory with complaints of jl9 Abdominal Pain, patient reports have a hysterectomy a few weeks ago and having intercourse for the first time last night. Patient noticed minimal spotting after and started having upper and lower abdominal pain. . jl9 11:30 11:11 Rocephin (cefTRIAXone) 2 grams IV at calculated rate once; Given slow IV push per jl9 pharmarcy instructions ordered. jl9 14:14 11:33 In process jl9
--- NOTE | 2022-01-23 11:34 | ER ---
Nurse's Notes [facility] Name: Makenzie Mendez Age: 31 yrs Sex: Female : 1990 Arrival Date: 01/23/2022 Time: 08:31 Bed 11 Private MD: Diagnosis: Other abdominal pain-Vaginal Dehisence s/p hysterectomy 11/13/21 Presentation: 01/23 08:32 Chief complaint: Patient states: i am having abdominal pain. i had a hysterectomy done tw2 November 13. i am from [place]. i got cleared by my dr a month ago for all regular activity. but last night after intercourse i am having really bad pain and it has not gone away. i am also bleeding it is bright red but it is not a lot. it is spotting. they took my uterus but not my ovaries. the pain takes my breathe away. Coronavirus screen: At this time, the client does not indicate any symptoms associated with coronavirus-19. Ebola Screen: Patient denies travel to an Ebola-affected area in the 21 days before illness onset. Initial Sepsis Screen: Does the patient meet any 2 criteria? HR > 90 bpm. No. Patient's initial sepsis screen is negative. Does the patient have a suspected source of infection? No. Patient's initial sepsis screen is negative. Risk Assessment: Do you want to hurt yourself or someone else? Patient reports no desire to harm self or others. Onset of symptoms was January 23, 2022. 08:32 Method Of Arrival: Ambulatory tw2 08:32 Acuity: [place] 3 tw2 Triage Assessment: 08:36 General: Appears uncomfortable, Behavior is calm, cooperative, appropriate for age. tw2 Pain: Complains of pain in vagina. Neuro: Level of Consciousness is awake, alert, obeys commands, Oriented to person, place, time, situation. Respiratory: Airway is patent Respiratory effort is even, unlabored, Respiratory pattern is regular, symmetrical. GI: Reports nausea. : Reports pain vaginal bleeding that is bright red, spotty. 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 Screenin:37 Abuse screen: Denies threats or abuse. Nutritional screening: No deficits noted. tw2 Tuberculosis screening: No symptoms or risk factors identified. Fall Risk None identified. Assessment: 08:41 Reassessment: pt taken to restroom via w/c for urine collection at this time. tw2 08:50 General: Appears uncomfortable, Behavior is calm, cooperative, Denies fever, feeling ss ill, fatigue, chills. Pain: Complains of pain in suprapubic area and right upper quadrant Pain currently is 9 out of 10 on a pain scale. Is continuous, Aggravated by increased activity. Neuro: Level of Consciousness is awake, alert, obeys commands, Oriented to person, place, time, situation, Speech is normal, Facial symmetry appears normal, Pupils are PERRLA. Cardiovascular: Capillary refill < 3 seconds is brisk in bilateral fingers. Respiratory: Airway is patent Respiratory effort is even, unlabored, Respiratory pattern is regular, symmetrical. GI: Bowel sounds present X 4 quads. Abdomen is tender to palpation in right upper quadrant. : Reports vaginal spotting. EENT: Oral mucosa is moist. Derm: Skin is intact, is healthy with good turgor, Skin is dry, Skin is pink, warm \T\ dry. normal. Musculoskeletal: Circulation, motion, and sensation intact. Range of motion: intact in all extremities, Swelling absent. 09:46 Reassessment: pt taken to CT at this time. tw2 09:53 Reassessment: Pt back from CT. Awaiting results. 13:16 Reassessment: Called report to MAGGI Gonzalez at [facility]. Vital Signs: 08:32 BP 135 / 76; Pulse 114; Resp 17; Temp 98.8(TE); Pulse Ox 100% on R/A; Weight 90.72 kg tw2 (R); Height 5 ft. 1 in. (154.94 cm); Pain 9/10; 09:09 BP 124 / 72; Pulse 101; Resp 14; Pulse Ox 100% on R/A; Pain 6/10; ss 08:32 Body Mass Index 37.79 (90.72 kg, 154.94 cm) tw2 ED Course: 08:31 Patient arrived in ED. rg4 08:32 Saulo Telles is PHCP. jl9 08:32 Brendan Lopez MD is Attending Physician. jl9 08:32 Arm band placed on. tw2 08:35 Triage completed. tw2 08:50 Inserted saline lock: 22 gauge in right antecubital area, using aseptic technique. ss Blood collected. Patient maintains SpO2 saturation greater than 95% on room air. 08:52 Bed in low position. Call light in reach. Pulse ox on. NIBP on. tw2 09:09 Vanessa Blount, MAGGI is Primary Nurse. ss 09:51 CT Abd/Pelvis - IV Contrast Only In Process Unspecified. EDMS 10:49 Lactate Sent. kc6 10:52 SARS RAPID Sent. kc6 11:46 initiated a transfer with Bruno Portillo from the [facility] transfer center. eb 12:[address] Paige Matos from [facility] with Ashish Momin for patient transfer eb consultation. 12:12 administrative approval given by Niya Chicas Rn/ patient has been accepted to [facility] ER/ Dr. Paige Matos has accepted the patient in transfer/ report to be called to [phone]. 14:13 No provider procedures requiring assistance completed. Patient transferred, IV remains ss in place. Administered Medications: 08:55 Drug: Ondansetron 4 mg Route: IVP; Site: right antecubital; ss 11:44 Follow up: Response: No adverse reaction; Pain is decreased ph 08:57 Drug: NS 0.9% 1000 ml Route: IV; Rate: 1000 ml; Site: right antecubital; ss 08:57 Drug: morphine 2 mg Route: IVP; Infused Over: 4 mins; Site: right antecubital; ss 11:44 Follow up: Response: No adverse reaction; Pain is decreased ph 10:35 Drug: morphine 4 mg Route: IVP; Infused Over: 4 mins; Site: right antecubital; ph 11:44 Follow up: Response: No adverse reaction; Pain is decreased ph 11:30 CANCELLED (wdd): Rocephin (cefTRIAXone) 2 grams IV at calculated rate once; Given slow jl9 IV push per pharmarcy instructions 12:25 Drug: metroNIDAZOLE 500 mg Volume: 100 ml; Route: IVPB; Infused Over: 30 mins; Site: ss right antecubital; 12:55 Follow up: IV Status: Completed infusion ss 13:00 Drug: Zosyn (piperacillin-tazobactam) 3.375 grams Route: IVPB; Infused Over: 60 mins; Site: right antecubital; 14:13 Follow up: IV Status: Completed infusion 14:13 Drug: morphine 2 mg Route: IVP; Infused Over: 4 mins; Site: right antecubital; Medication: 08:37 VIS not applicable for this client. tw2 Outcome: 11:33 ER care complete, transfer ordered by MD. haider 14:13 Transferred by ground EMS X-rays sent w/ patient. 14:13 Condition: good 14:13 Instructed on the need for transfer. 14:14 Patient left the ED. Signatures: Dispatcher [employer] EDVanessa Valdez RN RN Tracy Blum RN RN Calista Sarmiento RN RN tw2 Sridevi Francis4 Minal Montiel John 9 Caryn Charles kc6
[2022-01-23 11:41] LABS: SARS-CoV-2 Antigen Rapid Res Negative (Negative)
[2022-01-23] MEDS ORDERED: METRONIDAZOLE 500mg IVPB 500 MG/100 ML BAG IV ONE (12:02)
[2022-01-23] MEDS ORDERED: PIPERACIL/TAZO 3.375 GM VIAL IV ONE (12:02)
[2022-01-23] MEDS ORDERED: NA CHLORIDE 0.9% 100 ML ONE (12:03)
[2022-01-24 15:49] VITALS: O2SAT 100
[2022-01-24 15:56] VITALS: BP 135/76; TEMP 98.8
== END 2022-01-23 14:14 | disposition short-term general hospital (02) ==
LOC: ER 08:26
DX: T81.31XA Disruption of external operation (surgical) wound, not elsewhere classified, initial encounter (principal); Z90.710 Acquired absence of both cervix and uterus; Z20.822 Contact with and (suspected) exposure to COVID-19
CPT/HCPCS: 96365; 96367; 87040 ×2; 85025; 36415; 83605; 81003; 83690; 80053; 74177; 96375; 99285; 87811; Q9967; J2543; J2270 ×2; J7030; J2405

== ENCOUNTER 2022-10-24 15:01 | Emergency (ER) | payer BC ==
--- OUTSIDE RECORDS SUMMARY | 2022-10-24 15:13 | XMS REPORT | Continuity of Care Document ---
:1990 Author Organization [facility] t Address [address] [place] [address] Care Team Providers Name Role Phone Denver Payton Primary Care Physician [email or web address] Attending Clinician Unavailable Syed Valadez Attending Clinician Unavailable Syed Valadez Attending Clinician Unavailable Doctor Unassigned, Council Attending Clinician Unavailable ALE HERNADEZ Attending Clinician Unavailable Paige Matos MD Attending Clinician Ale Hernadez MD Attending Clinician LELE JUAREZ Attending Clinician Unavailable SYED VALADEZ Attending Clinician Unavailable YOVANY NGUYEN Attending Clinician Unavailable Syed Valadez Admitting Clinician Unavailable LAE HERNADEZ Admitting Clinician Unavailable Ale Hernadez MD Admitting Clinician SYED VALADEZ Admitting Clinician Unavailable Payers Payer Name Policy Type Policy Number Effective Date Expiration Date S our UMR P [id number] Problems Condition Condition Condition Status Onset Resolution Last Treating Co mments Source Name Details Category Date Date Treatment Clinician Date Abdominal Abdominal Disease Active Uni vers pain pain 9-15 ity of 00:00: [place] 00 Medical Branch Generalize Generalize Disease Active U nivers d d -15 [place] abdominal [place] pain [place] Obesity Obesity Disease Active Univers (BMI (BMI 9-15 ity of 30-39.9) 30-39.9) 00:00: Medical Branch S/P S/P Disease Active Overview: Univer s hysterecto hysterecto 01-23 Formattin ity of my my 00:00: g of this note Medical might be Branch different from the original. Added automatic ally from request for surgery [id number] Abnormal Abnormal Disease Active Overview: Un leatha vaginal vaginal 01-23 Formattin ity o f fluids fluids 00:00: g of this note Medical might be Branch different from the original. Added automatic ally from request for surgery [id number] Problem Problem [facility] Postoperat Problem Active NOÉ SALCIDO tg pain S Health Endometrio Problem Active NOÉ SALCIDO sis S determined Health by laparoscop y Allergies, Adverse Reactions, Alerts Allergy Allergy Status Severity Reaction(s) Onset Inactive Treating Comm ents Source Name Type Date Date Clinician NO KNOWN Drug Active Univers ALLERGIE Class ity of S [facility] No Known Drug [facility] Active [facility] No Known Drug Active [facility] No Known Drug Active [facility] Social History Social Habit Start Date Stop Date Quantity Comments Source History of Passive smoker University of tobacco use [facility] Exposure to 2022-01-13 2022-01-23 Not sure University SARS-CoV-2 00:00:00 15:29:00 [facility] (event) [place] Tobacco use and 2022-01-23 2022-01-23 Smokeless tobacco Un iversity of exposure 00:00:00 00:00:00 non-user [facility] Sex Assigned At [birth year] Universit y of 00:00:00 00:00:00 [facility] Smoking Status Start Date Stop Date Source Unknown if ever smoked [facility] Never smoked tobacco [facility] Medications Ordered Filled Start Stop Current Ordering Indication Dosage Frequency Signature Comments Components Source Medication Medication Date Date Medication? Clinician (SIG) Name Name lactated Yes 1000mL at 75 Univer s ringers IV 9-16 mL/hr, ity of infusion 22:00[place] 1,000 [place] 1[place]000 [place] 00 IV Medical Infusion, Branch CONTINUOUS , Starting on Thu01/24/22 at 1700, Until Discontinu ed, Routine, PACU lactated 2021- No 1000mL at 75 Unive rs ringers IV 01-24 mL/hr, ity of infusion 22:00: 02:26 1,000 mL, Edi as 1,000 mL 00 :14 IV Medical Infusion, Branch CONTINUOUS , Starting on Thu01/24/22 at 1700, Until Thu01/24/22 at 2126, Routine, PACU HYDROcodone 2021- No 1{tbl} 1 tablet, Univers -acetaminop 01-24 Oral, ity of hen (NORCO 22:00: 21:57 ONCE, 1 Edi as 5) 5-325 mg 00 :00 dose, On Medi deo tablet 1 Thu Branch tablet 01/24/22 at 1700, Routine, PACU HYDROcodone 2021- No 1{tbl} 1 tablet, Univers -acetaminop 01-24 Oral, ity of hen (NORCO 22:00: 21:57 ONCE, 1 Edi as 5) 5-325 mg 00 :00 dose, On Medi deo tablet 1 Thu Branch tablet 01/24/22 at 1700, Routine, PACU docusate Yes 100mg 100 mg, Unive rs (COLACE) 01-24 Oral, ity of capsule 100 01:00: Q12H, [place] mg 00 First dose Medical on Lona Branch 01/23/22 at 2000, Until Discontinu ed, Routine docusate 2021- No 100mg 100 mg, Univ ers (COLACE) 01-24 Oral, ity of capsule 100 01:00: 02:26 Q12H, [place] mg 00 :14 First dose Medical on [place] Branch 01/23/22 at 2000, Until Discontinu ed, Routine ibuprofen Yes [id number] 600mg Take 1 U nivers 600 mg 9-16 tablet by ity of tablet 00:00: mouth [place] 00 every 6 Medical (six) Branch hours as needed for Pain (scale 1-3) or Alternate with [place] for pain scale 4-6 for up to 30 doses. HYDROcodone 2021-0 Yes [id number] 1{tbl} Take 1 Un leatha -acetaminop 9-16 tablet by ity of hen 5-325 00:00: mouth [place] mg tablet 00 every 6 Medical (six) Branch hours as needed for Pain (scale 7-10) for up to 6 doses. Indication s: acute pain ibuprofen 2021-0 Yes [id number] 600mg Take 1 U nivers 600 mg 9-16 tablet by ity of tablet 00:00: mouth [place] 00 every 6 Medical (six) Branch hours as needed for Pain (scale 1-3) or Alternate with [place]anning for pain scale 4-6 for up to 30 doses. HYDROcodone 2021-0 Yes 4647 1{tbl} Take 1 Un leatha -acetaminop 9-16 tablet by ity of hen 5-325 00:00: mouth [place] mg tablet 00 every 6 Medical (six) Branch hours as needed for Pain (scale 7-10) for up to 6 doses. Indication s: acute pain ibuprofen 2021-0 Yes [id number] 600mg Take 1 U nivers 600 mg 9-16 tablet by ity of tablet 00:00: mouth [place] 00 every 6 Medical (six) Branch hours as needed for Pain (scale 1-3) or Alternate with [place] for pain scale 4-6 for up to 30 doses. HYDROcodone 2021-0 Yes [id number] 1{tbl} Take 1 Un leatha -acetaminop 9-16 tablet by ity of hen 5-325 00:00: mouth [place] mg tablet 00 every 6 Medical (six) Branch hours as needed for Pain (scale 7-10) for up to 6 doses. Indication s: acute pain simethicone 2021-0 Yes 160mg 160 mg, Un leatha (GAS RELIEF 9-15 Oral, ity of (SIMETHICON 23:00: PC+HS, [place] E)) 00 First dose Medical chewable on L[place] Branch tablet 160 01/23/22 at mg 1800, Until Discontinu ed, Routine simethicone 2022-0 2022- No 160mg 160 mg, U nivers (GAS RELIEF 9-15 -17 Oral, ity of (SIMETHICON 23:00: 02:26 PC+HS, Edi as E)) 00 :14 First dose Medical chewable on [place] Branch tablet 160 01/23/22 at mg 1800, Until Discontinu ed, Routine ondansetron Yes 4mg 4 mg, Unive rs (ZOFRAN-ODT 01-23 Oral, ity of ) 22:29: Q6HPRN, [place] disintegrat 57 Starting Medi deo ing tablet on L[place] Branch 4 mg 01/23/22 at 1729, Until Discontinu ed, Routine, Nausea and Vomiting (N/V) ondansetron 0 2021- No 4mg 4 mg, Univ ers (ZOFRAN-ODT 01-23 Oral, ity of ) 22:29: 02:[facility] [place] disintegrat 57 :14 Starting Medi deo ing tablet on [place] Branch 4 mg 01/23/22 at 1729, Until 01/24/22 at 2125, Routine, Nausea and Vomiting (N/V) acetaminoph 0 Yes 1{tbl} 1 tablet, Univers en-codeine 01-23 Oral, ity of (TYLENOL 22:29: [facility] [place] #[facility]) 300-30 25 Starting Medic al mg tablet 1 on [place] Branch tablet 01/23/22 at 1729, Until Discontinu ed, Routine, Pain (scale 4-6) acetaminoph 2021- No 1{tbl} 1 tablet, Univers en-codeine 01-23 Oral, ity of (TYLENOL 22:29: 02:26 Q6[facility], [place] #3) 300-30 25 :14 Starting Medic al mg tablet 1 on [place] Branch tablet 01/23/22 at 1729, Until 01/24/22 at 2125, Routine, Pain (scale 4-6) Acetaminoph 0 No 1 Every 6 CH[facility] en/Codeine 7-15 Hours as S Phosphate 14:54: needed for He alth (Tylenol 00 Pain #3) 1 Each TAB Lisinopril No 10mg Daily [facility] (Zestril) S 10 Mg TAB Health Lisinopril No 10mg Daily [facility] (Zestril) S 10 Mg TAB Health No Home No [facility] Meds 11-13 S 00:00 Health :00 No Home [facility] Meds 11-13 S 00:00 Health :00 Vital Signs Vital Name Observation Time Observation Value Comments Source Height/Length 2021-05-30 11:32:43 155 cm Measured Weight Dosing 2021-05-30 11:32:43 88 kg Height/Length 2021-05-30 11:29:31 155 cm Measured Weight Dosing 2021-05-30 11:29:31 88 kg Systolic blood 2022-01-24 22:07:00 145 mm[Hg] Univer sity of pressure [facility] Diastolic blood 2022-01-24 22:07:00 85 mm[Hg] Unive rsity of [facility] Heart rate 2022-01-24 22:07:00 85 /min [facility] Body temperature 2022-01-24 22:07:00 37.17 Anastasiya [facility] ersity [facility] Respiratory rate 2022-01-24 22:07:00 19 /min Univ ersity of [facility] Oxygen saturation in 2022-01-24 22:07:00 98 /min University of Arterial blood by [facility] Pulse oximetry Branch Body height 2022-01-24 02:46:00 154.9 cm [facility] Body weight 2022-01-24 02:46:00 93.5 kg per bed [facility] BMI 2022-01-24 02:46:00 38.95 kg/m2 [facility] Systolic blood 2022-01-24 16:36:00 143 mm[Hg] Univer sity of [facility] Diastolic blood 2022-01-24 16:36:00 73 mm[Hg] Unive rsity of [facility] Heart rate 2022-01-24 16:36:00 90 /min [facility] Body temperature 2022-01-24 16:36:00 37.39 Anastasiya Univ ersity of [facility] Respiratory rate 2022-01-24 16:36:00 20 /min Univ ersity of [facility] Oxygen saturation in 2022-01-24 16:36:00 99 /min University of Arterial blood by [facility] Pulse oximetry Branch Body height 2022-01-24 02:46:00 154.9 cm [facility] Body weight 2022-01-24 02:46:00 93.5 kg per bed [facility] BMI 2022-01-24 02:46:00 38.95 kg/m2 [facility] Height/Length 2019-10-21 06:24:20 Measured Weight Dosing 2019-10-21 06:24:20 BP Diastolic 2021-11-22 15:09:00 73 mm[Hg] [facility] BP Systolic 2021-11-22 15:09:00 118 mm[Hg] [facility] Heart Rate 2021-11-22 15:09:00 84 /min [facility] Respiratory rate 2021-11-22 15:09:00 16 /min [facility] Body Temperature 2021-11-22 15:09:00 98.2 [degF] [facility] BP Diastolic 2021-11-22 11:09:00 80 mm[Hg] [facility] BP Systolic 2021-11-22 11:09:00 128 mm[Hg] [facility] Heart Rate 2021-11-22 11:09:00 90 /min [facility] Respiratory rate 2021-11-22 11:09:00 18 /min [facility] BP Systolic 2021-11-13 12:37:00 115 mm[Hg] [facility] Heart Rate 2021-11-13 12:37:00 80 /min [facility] Respiratory rate 2021-11-13 12:37:00 14 /min [facility] Body Temperature 2021-11-13 12:37:00 98.6 [degF] [facility] BP Diastolic 2021-11-13 12:22:00 61 mm[Hg] [facility] BP Systolic 2021-11-13 12:22:00 105 mm[Hg] [facility] Heart Rate 2021-11-13 12:22:00 80 /min [facility] Respiratory rate 2021-11-13 12:22:00 12 /min [facility] Body Temperature 2021-11-13 12:22:00 99.0 [degF] [facility] BP Diastolic 2021-11-13 08:15:00 84 mm[Hg] [facility] BP Systolic 2021-11-13 08:15:00 135 mm[Hg] [facility] Heart Rate 2021-11-13 08:15:00 80 /min [facility] Respiratory rate 2021-11-13 08:15:00 18 /min [facility] Body Temperature 2021-11-13 08:15:00 97.8 [degF] [facility] Procedures Procedure Date / Time Performing Clinician Source Performed EXTERNAL PROVIDER RECORDS 2022-02-06 05:01:00 Doctor Unassigned, [facility] Council [facility] EXAM UNDER ANESTHESIA 2022-01-24 19:12:00 Ale Hernadez [facility] CYSTOSCOPY 2022-01-24 19:12:00 Ale Hernadez [facility] VAGINAL CUFF REPAIR 2022-01-24 19:12:00 Ale Hernadez [facility] CT ABDOMEN PELVIS W 2022-01-24 14:09:[facility] CT ABDOMEN PELVIS W 2022-01-24 14:09:20 Degraffenrfritz, [facility] CONTRAST [facility] CBC WITH DIFF 2022-01-24 09:11[facility] 2022-01-24 09:11:[facility]EL[facility] COMPLETE WITH 2022-01-23 23:55:16 [facility]ffenreid, [facility] PELVIS COMPLETE WITH 2022-01-23 23:55:16 Degraffenreid, [facility] BASIC METABOLIC PANEL 2022-01-23 22:40:00 Degraffemunira, [facility] (NA, K, CL, CO2, GLUCOSE, [facility] BUN, CREATININE, CA) CBC WITH DIFF 2022-01-23 22:40:00 [facility] BASIC METABOLIC PANEL 2022-01-23 22:40:00 [facility] (NA, K, CL, CO2, GLUCOSE, [facility] BUN, CREATININE, CA) CBC WITH DIFF 2022-01-23 22:40:00 Sergey Speonk o f [facility] Computed tomography of 2021-11-22 00:00:00 [facility] abdomen and pelvis with contrast Hysterectomy, 2021-11-13 00:00:00 [facility] laparoscopic, robot-assisted ROUTINE VENIPUNCTURE 2021-11-13 [facility] OR LESS 2021-11-13 00:00:00 [facility] LAPAROSCOPY EXCISE 2021-11-13 00:00:00 [facility] LESIONS COMPREHEN METABOLIC PANEL 2021-11-13 00:00:00 [facility] URINALYSIS AUTO W/O SCOPE 2021-11-13 00:00:00 [facility] CHORIONIC GONADOTROPIN 2021-11-13 00:00:00 [facility] ASSAY COMPLETE CBC W/AUTO DIFF 2021-11-13 00:00:00 [facility] WBC COMPLETE CBC AUTOMATED 2021-11-13 00:00:00 [facility] RBC ANTIBODY SCREEN 2021-11-13 00:00:00 [facility] BLOOD TYPING SEROLOGIC 2021-11-13 00:00:00 [facility] ABO BLOOD TYPING SEROLOGIC 2021-11-13 00:00:00 [facility] RH(D) TISSUE EXAM BY 2021-11-13 00:00:00 [facility] PATHOLOGIST Cath w/drainage 2-way 2021-11-13 00:00:00 [facility] observation per 2021-11-13 00:00:00 [facility] hr Acetaminophen injection 2021-11-13 00:00:00 [facility] Succinycholine chloride 2021-11-13 00:00:00 [facility] inj Cefazolin sodium 2021-11-13 00:00:00 [facility] injection Dexamethasone sodium phos 2021-11-13 00:00:00 [facility] Ketorolac tromethamine 2021-11-13 00:00:00 [facility] inj Inj midazolam 2021-11-13 00:00:00 RUST rohan [facility] hydrochloride Morphine sulfate 2021-11-13 00:00:00 [facility] aman injection Inj nalbuphine 2021-11-13 00:00:00 [facility] hydrochloride Ondansetron hcl injection 2021-11-13 00:00:00 [facility] Inj, propofol, 10 mg 2021-11-13 00:00:00 [facility] Neostigmine methylslfte 2021-11-13 00:00:00 [facility] inj Fentanyl citrate 2021-11-13 00:00:00 [facility] injection Drugs unclassified 2021-11-13 00:00:00 [facility] injection Ringers lactate infusion 2021-11-13 00:00:00 [facility] Hospital observation 2021-11-13 00:00:00 [facility] service, per hour Encounter Stat Only 2020-06-15 00:00:00 [facility] Arthrocentesis aspir&/inj 2020-06-15 00:00:00 [facility] major jt/bursa w/o US Minor level new patient 2020-05-07 00:00:00 [facility] office visit X-ray of shoulder, two or 2020-05-07 00:00:00 [facility] more views Encounters Start End Encounter Admission Attending Care Care Encounter Source Date/Time Date/Time Type Type Clinicians Facility Department ID 2021-08-08 Outpatient .[email or web address] [facility] [id number] [facility] 08:58:02 d [facility] 2019-09-30 Inpatient Syed Valadez [facility] [id number] Medical 11:50:00 Syed Valadez [facility] [place] [facility] 2022-02-06 2022-02-06 Orders Doctor GERTRUDIS [id number] Univers 00:00:00 00:00:00 Only Unassigned, MURIEL [id number] ity of Council [facility] 4.2.7.2.686 Edi as [id number] [facility] 009 Branch 2022-01-23 2022-01-24 Outpatient X HORACIO ORNENITA PLACEMENT OFFICER [id number] Univers 15:29:00 19:20:00 ALE ity of [facility] 2022-01-23 2022-01-24 Emergency Paige Matos [id number] Univers 15:29:00 19:20:00 Ale Hernadez [id number] ity [facility] 4.2.7.2.686 Edi as [id number] [facility] 094 Branch 2022-01-24 2022-01-24 Surgery LUCIO Hernadez [id number] Univers 13:20:00 14:26:00 Ale LLAMAS [id number] it y [facility] 4.2.7.2.686 Edi as [id number] [facility] 103 Branch 2021-11-22 2021-11-22 Registered ER RUIZ JUAREZ AE [id number] [facility] 10:48:00 15:11:00 Emergency LELE 67 S Room [facility] 2021-11-13 2021-11-14 [place] [id number] [facility] 13:02:00 10:36:00 SYED [id number] S Health 2021-11-13 2021-11-14 Discharged ZULY VALADEZ HOLAUS OB [id number] [facility] 13:02:00 10:36:00 Inpatient SYED 01 S (obs) Health 2020-06-15 2020-06-15 Discharged ZULY NGUYEN RUIZ [facility] [id number] [facility] 11:15:00 11:15:00 Recurring YOVANY 54 S Health 2020-05-07 2020-05-07 Discharged EL PATRICK RUIZ [facility] [id number] [facility] 16:39:00 16:39:00 Recurring YOVANY 57 S Health 2019-10-21 2019-10-21 Outpatient 3 Syed Valadez [facility] [id number] Medical 06:03:00 06:03:00 Syed Valadez [id number] [facility] [place] [facility] Results Test Description Test Time Test Comments Results Result Comments Source Urinalysis specimen collection method 2021-11-22 12:30:00 Test Item Value Reference Range Interpretation Comme nts Urine Source (test code = 99386-6) URINE [facility] HealthColor of Urine by [id number] 12:30:00 Test Item Value Reference Range Interpretation Comments Urine Color (test code = 38386-5) Lt Yellow Yel-Tete * [facility] HealthUrine clarity [id number] 12:30:00 Test Item Value Reference Range Interpretation Comments Urine Appearance (test code = 80583-6) Clear Clear * [facility] HealthUrine pH measurement by automated test [id number] 12:30:00 Test Item Value Reference Range Interpretation Comments Urine pH (test code = 61205-5) 5.5 5.0-8.0 [facility] HealthSpecific gravity of Urine by Automated test [id number] 12:30:00 Test Item Value Reference Range Interpretation Comments Urine Specific [place] (test code = 1.012 1.005-1.030 09184-1) [facility] HealthUrine protein measurement by automated test strip (mass/volume) 2021-11-22 12:30:00 Test Item Value Reference Range Interpretation Comments Urine Protein (test code = 57781-9) Negative Negative * [facility] HealthUrine glucose measurement by automated test strip (mass/volume) 2021-11-22 12:30:00 Test Item Value Reference Range Interpretation Comments Urine Glucose (UA) (test code = Negative Negative * 91432-7) [facility] HealthKetones [Mass/volume] in Urine by Automated test [id number] 12:30:00 Test Item Value Reference Range Interpretation Comments Urine Ketones (test code = 75497-8) Negative Negative * [facility] HealthUrine erythrocytes count by automated test strip (number/volume) 2021-11-22 12:30:00 Test Item Value Reference Range Interpretation Comments Urine Occult Blood (test code = Trace Negative * 78709-0) [facility] HealthUrine nitrite detection by automated test [id number] 12:30:00 Test Item Value Reference Range Interpretation Comments Urine Nitrite (test code = 05760-6) Negative Negative [facility] HealthUrine total bilirubin measurement by automated test strip (mass/volume)2021-11-22 12:30:00 Test Item Value Reference Range Interpretation Comments Urine Bilirubin (test code = Negative Negative 65072-7) [facility] HealthUrine urobilinogen measurement by automated test strip (mass/volume)2021-11-22 12:30:00 Test Item Value Reference Range Interpretation Comments Urine Urobilinogen (test code = Negative 0.0-1.0 87285-6) [facility] HealthUrine leukocytes count by automated test strip (number/volume) 2021-11-22 12:30:00 Test Item Value Reference Range Interpretation Comments Urine Leukocyte Esterase (test code Negative Negative = 38043-4) [facility] HealthUrine sediment erythrocyte count by microscopy (number/high power field)2021-11-22 12:30:00 Test Item Value Reference Range Interpretation Comments Urine RBC (test code = 84520-4) 0-2 0-2 [facility] HealthUrine sediment leukocyte count [...] (test code = None Seen None * 90773-9) [facility] HealthUrine sediment bacteria count by microscopy [...] HealthYeast detection in urine sediment by light [id number] 12:30:00 Test Item Value Reference Range Interpretation Comments Urine Yeast (test code = 88040-1) None Seen None [facility] comment [id number] 12:30:00 Test Item Value Reference Range Interpretation Comments Urinalysis Comment (test * See_Comment [A utomated message] The code = 8262-8) system which generated this result tra nsmitted reference range : *. The reference range was not used to interpr et this result as normal/abnormal . [facility] comment [id number] 12:30:00 Test Item Value Reference Range Interpretation [...] = 786-4) [facility] HealthAutomated erythrocyte distribution width [id number] 12:25:00 Test Item Value Reference Range Interpretation Comments Red Cell Distribution Width (test code 12.4 10.7-14.5 = 788-0) [facility] HealthAutomated blood platelet count (count/volume)2021-11-22 12:25:00 Test Item Value Reference Range Interpretation Comments Platelet Count (test code = 777-3) 321 150-450 [facility] HealthAutomated blood platelet mean volume [id number] 12:25:00 Test Item Value Reference Range Interpretation Comments Mean Platelet Volume (test code = 9.8 5.7-10.7 30015-6) [facility] HealthAutomated blood neutrophil count as percentage of total [id number] 12:25:00 Test Item Value Reference Range Interpretation Comments Neutrophils (%) (Auto) (test code = 78 47-75 770-8) [facility] HealthAutomated blood immature granulocyte count as percentage of total [id number] 12:25:00 Test Item Value Reference Range Interpretation Comments Immature Granulocyte % (Auto) (test 0 0-0 code = 37255-4) [facility] HealthAutomated blood lymphocyte count as percentage of total [id number] 12:25:00 Test Item Value Reference Range Interpretation Comments Lymphocytes (%) (Auto) (test code = 14 25-44 736-9) [facility] HealthAutomated blood monocyte count as percentage of total leukocytes 2021-11-22 12:25:00 Test Item Value Reference Range Interpretation Comments Monocytes (%) (Auto) (test code = 6 3-10 5905-5) [facility] HealthAutomated blood eosinophil count as percentage of total [id number] 12:25:00 Test Item Value Reference Range Interpretation Comments Eosinophils (%) (Auto) (test code = 3 0-7 713-8) [facility] HealthAutomated blood basophil count as percentage of total leukocytes 2021-11-22 12:25:00 Test Item Value Reference Range Interpretation Comments Basophils (%) (Auto) (test code = 0 0-1 706-2) [facility] HealthAutomated blood nucleated erythrocyte count as percentage of total [id number] 12:25:00 Test Item Value Reference Range Interpretation Comments Nucleated Red Blood Cells % (test code 0.0 0-0.2 = 03696-5) [facility] HealthAutomated blood neutrophil count (number/volume)2021-11-22 12:25:00 Test Item Value Reference Range Interpretation Comments Neutrophils # (Auto) (test code = 9.1 1.3-6.7 751-8) [facility] HealthAutomated blood immature granulocyte count as percentage of total [id number] 12:25:00 Test Item Value Reference Range Interpretation Comments Immature Granulocyte # (Auto) (test 0.1 0.0-0.0 code = 89727-4) [facility] HealthAutomated blood lymphocyte count (number/volume)2021-11-22 12:25:00 Test Item Value Reference Range Interpretation Comments Lymphocytes # (Auto) (test code = 1.6 1.4-4.1 731-0) [facility] HealthBlood monocytes automated count (number/volume)2021-11-22 12:25:00 Test Item Value Reference Range Interpretation Comments Monocytes # (Auto) (test code = 742-7) 0.7 0-1.3 [facility] HealthAutomated blood eosinophil [id number] 12:25:00 Test Item Value Reference Range Interpretation [...] 0.00 0-0.01 = 771-6) [facility] comment [id number] 12:25:00 Test Item Value Reference Range Interpretation Comments Manual Differential (test code = Not Ind 8265-1) [facility] [id number] 12:25:00 Test Item Value Reference Range Interpretation [...] Dioxide Level (test code = 27 22-29 2028-01) [facility] HealthSerum or plasma anion gap determination (moles/volume)2021-11-22 12:25:00 Test Item Value Reference Range Interpretation Comments Anion Gap (test code = 82530-4) 13 8-18 [facility]Serum or plasma urea nitrogen measurement (mass/volume)2021-11-22 12:25:00 Test Item Value Reference Range Interpretation Comments Blood Urea Nitrogen (test code = 12 - 3094-0) [facility] HealthSerum or plasma creatinine measurement (mass/volume)2021-11-22 12:25:00 Test Item Value Reference Range Interpretation Comments Creatinine (test code = 2160-0) 0.7 0.6-1.1 [facility] HealthGFR/BSA.pred SerPl [id number] 12:25:00 Test Item Value Reference Range Interpretation Comments Estimat Glomerular Filtration Rate 104 81-133 (test code = 59577-7) [facility] HealthSerum or plasma glucose measurement (mass/volume)2021-11-22 12:25:00 Test Item Value Reference Range Interpretation Comments Glucose Level (test code = 2345-7) 112 60-100 [facility] HealthSerum or plasma calcium measurement (mass/volume)2021-11-22 12:25:00 Test Item Value Reference Range Interpretation Comments Calcium Level (test code = 62373-6) 9.4 8.4-10.2 [facility] HealthSerum or plasma total [...] = 786-4) [facility] HealthAutomated erythrocyte distribution width [id number] 05:10:00 Test Item Value Reference Range Interpretation Comments Red Cell Distribution Width (test code 12.6 10.7-14.5 = 788-0) [facility] HealthAutomated blood platelet count (count/volume)2021-11-14 05:10:00 Test Item Value Reference Range Interpretation Comments Platelet Count (test code = 777-3) 360 150-450 [facility]Automated blood platelet mean volume [id number] 05:10:00 Test Item Value Reference Range Interpretation Comments Mean Platelet Volume (test code = 9.8 5.7-10.7 25923-2) [facility] HealthAutomated blood neutrophil count as percentage of total [id number] 05:10:00 Test Item Value Reference Range Interpretation Comments Neutrophils (%) (Auto) (test code = 78 47-75 770-8) [facility]Automated blood immature granulocyte count as percentage of total vornefziyb8200-83-26 05:10:00 Test Item Value Reference Range Interpretation Comments Immature Granulocyte % (Auto) (test 1 0-0 code = 83648-9) [facility] HealthAutomated blood lymphocyte count as percentage of total [id number] 05:10:00 Test Item Value Reference Range Interpretation Comments Lymphocytes (%) (Auto) (test code = 16 25-44 736-9) [facility]Automated blood monocyte count as percentage of total leukocytes 2021-11-14 05:10:00 Test Item Value Reference Range Interpretation Comments Monocytes (%) (Auto) (test code = 6 3-10 5905-5) [facility]Automated blood eosinophil count as percentage of total [id number] 05:10:00 Test Item Value Reference Range Interpretation Comments Eosinophils (%) (Auto) (test code = 0 0-7 713-8) [facility]Automated blood basophil count as percentage of total leukocytes 2021-11-14 05:10:00 Test Item Value Reference Range Interpretation Comments Basophils (%) (Auto) (test code = 0 0-1 706-2) [facility] HealthAutomated blood nucleated erythrocyte count as percentage of total rypblunghj6402-60-30 05:10:00 Test Item Value Reference Range Interpretation Comments Nucleated Red Blood Cells % (test code 0.0 0-0.2 = 77292-0) [facility]Automated blood neutrophil count (number/volume)2021-11-14 05:10:00 Test Item Value Reference Range Interpretation Comments Neutrophils # (Auto) (test code = 10.2 1.3-6.7 751-8) [facility]Automated blood immature granulocyte count as percentage of total esmadvyqtm3120-15-85 05:10:00 Test Item Value Reference Range Interpretation Comments Immature Granulocyte # (Auto) (test 0.1 0.0-0.0 code = 31744-7) [facility]Automated blood lymphocyte count (number/volume)2021-11-14 05:10:00 Test Item Value Reference Range Interpretation Comments Lymphocytes # (Auto) (test code = 2.0 1.4-4.1 731-0) [facility] HealthBlood monocytes automated count (number/volume)2021-11-14 05:10:00 Test Item Value Reference Range Interpretation Comments Monocytes # (Auto) (test code = 742-7) 0.7 0-1.3 [facility] HealthAutomated blood eosinophil [id number] 05:10:00 Test Item Value Reference Range Interpretation [...] 0.00 0-0.01 = 771-6) [facility] comment [id number] 05:10:00 Test Item Value Reference Range Interpretation Comments Manual Differential (test code = Not Ind 8265-1) [facility] HealthMicroscopic examination of [id number] 12:05:00 Test Item Value Reference Range Interpretation Comments Microscopic Urinalysis (T) (test code Not Ind = 92337-6) [facility] HealthUrinalysis specimen collection [id number] 12:05:00 Test Item Value Reference Range Interpretation Comments Urine Source (test code = 86812-8) URINE [facility] HealthColor of Urine by [id number] 12:05:00 Test Item Value Reference Range Interpretation Comments Urine Color (test code = 93619-1) Colorless Yel-Tete * [facility] HealthUrine clarity [id number] 12:05:00 Test Item Value Reference Range Interpretation Comments Urine Appearance (test code = 07862-7) Clear Clear * [facility] HealthUrine pH measurement by automated test [id number] 12:05:00 Test Item Value Reference Range Interpretation Comments Urine pH (test code = 91554-4) 6.0 5.0-8.0 [facility] HealthSpecific gravity of Urine by Automated test [id number] 12:05:00 Test Item Value Reference Range Interpretation Comments Urine Specific [place] (test code = 1.005 1.005-1.030 63970-6) [facility] HealthUrine protein measurement by automated test strip (mass/volume) 2021-11-12 12:05:00 Test Item Value Reference Range Interpretation Comments Urine Protein (test code = 54876-1) Negative Negative * [facility] HealthUrine glucose measurement by automated test strip (mass/volume) 2021-11-12 12:05:00 Test Item Value Reference Range Interpretation Comments Urine Glucose (UA) (test code = Negative Negative * 15522-4) [facility] HealthKetones [Mass/volume] in Urine by Automated test [id number] 12:05:00 Test Item Value Reference Range Interpretation Comments Urine Ketones (test code = 11436-6) Negative Negative * [facility] HealthUrine erythrocytes count by automated test strip (number/volume) 2021-11-12 12:05:00 Test Item Value Reference Range Interpretation Comments Urine Occult Blood (test code = Negative Negative * 36463-9) [facility] HealthUrine nitrite detection by automated test [id number] 12:05:00 Test Item Value Reference Range Interpretation Comments Urine Nitrite (test code = 15932-2) Negative Negative [facility] HealthUrine total bilirubin measurement by automated test strip (mass/volume)2021-11-12 12:05:00 Test Item Value Reference Range Interpretation Comments Urine Bilirubin (test code = Negative Negative 63466-8) [facility] HealthUrine urobilinogen measurement by automated test strip (mass/volume)2021-11-12 12:05:00 Test Item Value Reference Range Interpretation Comments Urine Urobilinogen (test code = Negative 0.0-1.0 28627-4) [facility] HealthUrine leukocytes count by automated test strip (number/volume) 2021-11-12 12:05:00 Test Item Value Reference Range Interpretation Comments Urine Leukocyte Esterase (test code Negative Negative = 50399-3) [facility] HealthMicroscopic examination of [id number] 12:05:00 Test Item Value Reference Range Interpretation Comments Microscopic Urinalysis (T) (test code Not Ind = 75004-3) [facility] comment 12:05:00 Test Item Value Reference Range Interpretation Comments Urinalysis Comment (test * See_Comment [A utomated message] The code = 8262-8) system which generated this result tra nsmitted reference range : *. The reference range was not used to interpr et this result as normal/abnormal . [facility] HealthSerum or plasma beta choriogonadotropin ( test) [id number] 12:00:00 Test Item Value Reference Range Interpretation Comments Serum Test, Qualitative Negative Negative (test code = 2110-5) [facility] HealthSodium [id number] 12:00:00 Test Item Value Reference Range Interpretation [...] Comments Carbon Dioxide Level (test code = 25 22-29 2028-01) [facility] HealthSerum or plasma anion gap determination (moles/volume)2021-11-12 12:00:00 Test Item Value Reference Range Interpretation Comments Anion Gap (test code = 23446-9) 12 8-18 [facility] HealthSerum or plasma urea nitrogen measurement (mass/volume)2021-11-12 12:00:00 Test Item Value Reference Range Interpretation Comments Blood Urea Nitrogen (test code = 03 17- 3094-0) [facility] HealthSerum or plasma creatinine measurement (mass/volume)2021-11-12 12:00:00 Test Item Value Reference Range Interpretation Comments Creatinine (test code = 2160-0) 0.8 0.6-1.1 [facility] HealthGFR/BSA.pred SerPl [id number] 12:00:00 Test Item Value Reference Range Interpretation Comments Estimat Glomerular Filtration Rate 89 81-133 (test code = 55765-8) [facility] HealthSerum or plasma glucose measurement (mass/volume)2021-11-12 12:00:00 Test Item Value Reference Range Interpretation Comments Glucose Level (test code = 2345-7) 92 60-100 [facility]Serum or plasma calcium measurement (mass/volume)2021-11-12 12:00:00 Test Item Value Reference Range Interpretation Comments Calcium Level (test code = 37890-8) 9.6 8.4-10.2 [facility] HealthSerum or plasma total bilirubin measurement (mass/volume) 2021-11-12 12:00:00 Test Item Value Reference Range Interpretation Comments Total Bilirubin (test code = 1975-2) 0.3 0.2-1.2 [facility] HealthSerum or plasma aspartate aminotransferase measurement (enzymatic activity/volume)2021-11-12 12:00:00 Test Item Value Reference Range Interpretation Comments Aspartate Amino Transf (AST/SGOT) (test 22 5-34 code = 1920-8) [facility] alanine aminotransferase measurement (enzymatic activity/volume)2021-11-12 12:00:00 Test Item Value Reference Range Interpretation Comments Alanine Aminotransferase (ALT/SGPT) 25 0-55 (test code = 1742-6) [facility] protein measurement (mass/volume)2021-11-12 12:00:00 Test Item Value Reference Range Interpretation Comments Total Protein (test code = 2885-2) 7.7 6.4-8.3 [facility] plasma albumin measurement (mass/volume)2021-11-12 12:00:00 Test Item Value Reference Range Interpretation Comments Albumin (test code = 1751-7) 4.3 3.5-5.0 [facility] alkaline phosphatase measurement (enzymatic activity/volume)2021-11-12 12:00:00 Test Item Value Reference Range Interpretation Comments Alkaline Phosphatase (test code = 68 40-150 6768-6) [facility] plasma beta choriogonadotropin ( test) [id number] 12:00:00 Test Item Value Reference Range Interpretation Comments Serum Test, Qualitative Negative Negative (test code = 2110-5) [facility]
[2022-10-24] MEDS ORDERED: ACETAMINOPHEN 500 MG TAB ONE (15:47)
[2022-10-24] MEDS ORDERED: IBUPROFEN 400 MG TAB ONE (15:47)
--- NOTE | 2022-10-24 16:21 | RAD REPORT ---
EXAM DESCRIPTION: CT - Facial Bones W/ Mpr - 10/24/2022 4:04 pm CLINICAL HISTORY: Left mandibular pain COMPARISON: None TECHNIQUE: Computed axial tomography of the face was obtained. Coronal and sagittal reconstruction w as performed. All CT scans are performed using dose optimization technique as appropriate and may include automated exposure control or mA/KV adjustment according to patient size. FINDINGS: A fracture is not seen. No large tooth abscess noted A TMJ dislocation is not noted. The globes are intact. Fluid within the sinuses is not seen. IMPRESSION: No significant abnormality is displayed
--- NOTE | 2022-10-24 16:56 | ER ---
Nurse's Notes [facility] Name: Makenzie Mendez Age: 32 yrs Sex: Female : 1990 Arrival Date: 10/24/2022 Time: 15:01 Bed 10 Private MD: Diagnosis: Jaw pain Presentation: 10/24 15:11 Chief complaint: Patient states: L jaw pain x Thursday10/14/22 after dental work. Denies ml4 f/c. Speech clear. Coronavirus screen: At this time, the client does not indicate any symptoms associated with coronavirus-19. Ebola Screen: No symptoms or risks identified at this time. Initial Sepsis Screen: Does the patient meet any 2 criteria? No. Patient's initial sepsis screen is negative. Risk Assessment: Do you want to hurt yourself or someone else? Patient reports no desire to harm self or others. Onset of symptoms was October 14, 2022. Care prior to arrival: None. Activity prior to arrival: None. 15:11 Method Of Arrival: Ambulatory ml4 15:11 Acuity: [place] 4 ml4 15:14 Initial Sepsis Screen: Does the patient have a suspected source of infection? No. ml4 Patient's initial sepsis screen is negative. Triage Assessment: 15:12 General: Appears in no apparent distress. comfortable, Behavior is calm, cooperative, ml4 appropriate for age. Pain: Complains of pain in left jaw Pain does not radiate. Pain currently is 2 out of 10 on a pain scale. Quality of pain is described as aching, Pain began gradually. Neuro: No deficits noted. Level of Consciousness is awake, alert, obeys commands, Oriented to person, place, time, situation, Gait is steady, Speech is normal, Facial symmetry appears normal. Cardiovascular: No deficits noted. Denies chest pain, diaphoresis, fatigue. 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 - Social history:: Smoking status: Patient denies any tobacco usage or history of. Patient/guardian denies using alcohol, street drugs. Screenin:27 [facility] ED Fall Risk Assessment (Adult) History of falling in the last 3 months, mb9 including since admission No falls in past 3 months (0 pts) Confusion or Disorientation No (0 pts) Intoxicated or Sedated No (0 pts) Impaired Gait No (0 pts) Mobility Assist Device Used No (0 pt) Altered Elimination No (0 pt) Score/Fall Risk Level 0 - 2 = Low Risk Oriented to surroundings, Maintained a safe environment, Educated pt \T\ family on fall prevention, incl call for assistance when getting out of bed. Abuse screen: Denies threats or abuse. Nutritional screening: No deficits noted. Tuberculosis screening: No symptoms or risk factors identified. Assessment: 15:26 Reassessment: see triage assessment. mb9 16:38 Reassessment: No changes from previously documented assessment. Patient and/or family mb9 updated on plan of care and expected duration. Pain level reassessed. Patient is alert, oriented x 3, equal unlabored respirations, skin warm/dry/pink. Vital Signs: 15:10 BP 144 / 89; Pulse 86; Resp 18; Temp 98.4(T); Pulse Ox 100% on R/A; Weight 90.72 kg; ml4 Height 5 ft. 1 in. ; Pain 2/10; 15:10 Body Mass Index 37.79 (90.72 kg, 154.94 cm) ml4 15:10 Pain Scale: Adult ml4 ED Course: 15:04 Patient arrived in ED. mr 15:10 Brendan Bolden PA is PHCP. cp 15:10 Brendan Lopez MD is Attending Physician. cp 15:12 Triage completed. ml4 15:14 Arm band placed on right wrist. ml4 15:26 Leslie Irving, MAGGI is Primary Nurse. mb9 15:27 Bed in low position. Call light in reach. Side rails up X 1. Client placed on mb9 continuous cardiac and pulse oximetry monitoring. NIBP monitoring applied. 16:06 CT Facial Bones W/O Con In Process Unspecified. EDMS 16:55 Lucio Locke DDS is Referral Physician. cp 17:01 No provider procedures requiring assistance completed. Patient did not have IV access mb9 during this emergency room visit. Administered Medications: 15:44 Drug: Ibuprofen PO 800 mg Route: PO; mb9 16:38 Follow up: Response: No adverse reaction mb9 15:44 Drug: Acetaminophen PO 1000 mg Route: PO; mb9 16:38 Follow up: Response: No adverse reaction mb9 Medication: 15:27 VIS not applicable for this client. mb9 Outcome: 16:56 Discharge ordered by . cp 17:01 Discharged to home ambulatory. mb9 17:01 Condition: stable 17:01 Discharge instructions given to patient, Instructed on discharge instructions, follow up and referral plans. Demonstrated understanding of instructions, follow-up care, medications, Prescriptions given X 1. 17:02 Patient left the ED. mb9 Signatures: Dispatcher [employer] EDVT Vance Leslie patricia Brendan Bolden, PA PA Leslie Zee, RN RN mb9 Nini, RNIII, Sarwat, RN RN ml4 Corrections: (The following items were deleted from the chart) 15:15 15:11 Chief complaint: Patient states: L jaw pain x Thursday10/21/22 after dental work. ml4 Denies f/c. Speech clear. ml4 15:15 15:11 Initial Sepsis Screen: Does the patient have a suspected source of infection? No. ml4 Patient's initial sepsis screen is negative. ml4
--- NOTE | 2022-10-24 16:56 | EDPHYS ---
Physician Documentation [facility] Name: Makenzie Mendez Age: 32 yrs Sex: Female : 1990 Arrival Date: 10/24/2022 Time: 15:01 Bed 10 Private MD: ED Physician Brendan Lopez HPI: 10/24 15:30 This 32 yrs old Female presents to ER via Ambulatory with complaints of Jaw cp Pain. 15:30 The patient presents with pain. cp 15:30 The problem is located in the left jaw. Onset: The symptoms/episode began/occurred last cp week, after having dental fillings. Associated signs and symptoms: The patient has no apparent associated signs or symptoms. 15:30 Severity of symptoms: in the emergency department the symptoms are unchanged, despite cp home interventions. 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 - Social history:: Smoking status: Patient denies any tobacco usage or history of. Patient/guardian denies using alcohol, street drugs. ROS: 15:35 Constitutional: Negative for body aches, chills, fever, poor PO intake. cp 15:35 Eyes: Negative for injury, pain, redness, and discharge. cp 15:35 ENT: Positive for left side jaw pain, Negative for drainage from ear(s), ear pain, sinus congestion, sinus pain, dental pain, difficulty swallowing, difficulty handling secretions. 15:35 Neck: Negative for pain with movement, pain at rest, stiffness. 15:35 Respiratory: Negative for cough, shortness of breath, wheezing. 15:35 Skin: Negative for rash. 15:35 Neuro: Negative for altered mental status, dizziness, headache, weakness. 15:35 All other systems are negative. Exam: 15:40 Constitutional: The patient appears in no acute distress, alert, awake, non-toxic, well cp developed, well nourished. 15:40 Head/Face: Normocephalic, atraumatic. cp 15:40 Eyes: Periorbital structures: appear normal, Conjunctiva: normal, no exudate, no injection, Sclera: no appreciated abnormality, Lids and lashes: appear normal, bilaterally. 15:40 ENT: External ear(s): are unremarkable, Ear canal(s): are normal, clear, TM's: dullness, bilaterally, Nose: is normal, Mouth: Lips: moist, Oral mucosa: pink and intact, moist, Gums: pink, abscess, is not appreciated, Posterior pharynx: is normal, airway is patent, no erythema, no exudate, Dental exam: abscess, is not appreciated, dental caries, that is mild, diffusely, gum swelling, not appreciated, pain, is not appreciated, Voice: is normal, tenderness to palpation left TMJ. 15:40 Neck: ROM/movement: is normal, is supple, without pain, no range of motions limitations, Lymph nodes: no appreciated lymphadenopathy. 15:40 Chest/axilla: Inspection: normal. 15:40 Cardiovascular: Rate: normal, Rhythm: regular. 15:40 Respiratory: the patient does not display signs of respiratory distress, Respirations: normal, no use of accessory muscles, no retractions, labored breathing, is not present. 15:40 Skin: no rash present. Vital Signs: 15:10 BP 144 / 89; Pulse 86; Resp 18; Temp 98.4(T); Pulse Ox 100% on R/A; Weight 90.72 kg; ml4 Height 5 ft. 1 in. ; Pain 2/10; 15:10 Body Mass Index 37.79 (90.72 kg, 154.94 cm) ml4 15:10 Pain Scale: Adult ml4 MDM: 15:16 Patient medically screened. cp 15:45 Differential diagnosis: dental caries, dental abscess, pericoronitis, acute necrotizing cp ulcerative gingivitis, gingivostomatitis, TMJ pain. 16:55 Data reviewed: vital signs, nurses notes, radiologic studies, CT scan. cp 16:55 I considered the following discharge prescriptions or medication management in the emergency department Medications were administered in the Emergency Department. See MAR. Counseling: I had a detailed discussion with the patient and/or guardian regarding: the historical points, exam findings, and any diagnostic results supporting the discharge/admit diagnosis, radiology results, to return to the emergency department if symptoms worsen or persist or if there are any questions or concerns that arise at home. Response to treatment: the patient's symptoms have mildly improved after treatment, and as a result, I will discharge patient. 10/24 15:31 Order name: CT Facial Bones W/O Con; Complete Time: 16:31 cp Administered Medications: 15:44 Drug: Ibuprofen PO 800 mg Route: PO; mb9 16:38 Follow up: Response: No adverse reaction mb9 15:44 Drug: Acetaminophen PO 1000 mg Route: PO; mb9 16:38 Follow up: Response: No adverse reaction mb9 Disposition Summary: 10/24/22 16:56 Discharge Ordered Location: Home cp Problem: new cp Symptoms: have improved cp Condition: Stable cp Diagnosis - Jaw pain cp Followup: cp - With: Lucio Locke DDS - When: 1 week - Reason: pain continues Discharge Instructions: - Discharge Summary Sheet cp - Pain Medicine Instructions cp - Jaw Range of Motion Exercises cp Forms: - Medication Reconciliation Form cp - Thank You Letter cp - Antibiotic Education cp - Prescription Opioid Use cp Prescriptions: - Diclofenac Sodium 75 mg Oral Tablet Sustained Release - take 1 tablet by ORAL route 2 times per day; 30 tablet; Refills: 0, Product cp Selection Permitted Signatures: Dispatcher [employer] EDBrendan Morrissey PA PA cp Leslie Irving RN RN mb9 MAGGI TerrazasIII, Sarwat RN RN ml4
[2022-10-24 17:55] VITALS: BP 144/89; TEMP 98.4; O2SAT 100
== END 2022-10-24 17:02 | disposition home or self-care (01) ==
LOC: ER 15:01
DX: R68.84 Jaw pain (principal)
CPT/HCPCS: 70486; 76377; 99283